=== PATIENT | male | born 1950 | race Caucasian/White ===

== ENCOUNTER 2019-08-24 12:41 | Outpatient (CLI) | payer MEDICARE, SELFPAY ==
[2019-08-24 12:59] LABS: Basophils Absolute Auto 0.06 K/mm3 (0.00-0.10); Basophils Percent Auto 0.9 % (0.0-1.0); Eosinophils Absolute Auto 0.21 K/mm3 (0.02-0.50); Hematocrit 46.6 % (37.0-46.0); Hemoglobin 16.1 g/dL (12.4-15.3); Immature Granulocyte Absolute 0.01 K/mm3 (0.00-0.00); Immature Granulocyte Percent A 0.1 % (0.0-0.0); Lymphocytes Absolute Auto 1.59 K/mm3 (1.10-4.50); Lymphocytes Percent Auto 22.8 % (18.0-42.0); Mean Corpuscular HGB Conc 34.5 g/dL (32.0-36.0); Mean Corpuscular Hemoglobin 29.4 pg (27.0-31.0); Mean Corpuscular Volume 85.2 fL (78.0-102.0); Mean Platelet Volume 8.5 fl (8.7-11.0); Monocytes Absolute Auto 0.65 K/mm3 (0.10-0.90); Monocytes Percent Auto 9.3 % (2.0-11.0); Neutrophils Absolute Auto 4.4 K/mm3 (1.7-7.2); Neutrophils Percent Auto 63.9 % (50.0-70.0); Platelet Count Result 168 K/mm3 (150-420); Red Blood Count 5.47 M/mm3 (4.70-6.10); Red Cell Distribution Width 12.6 % (11.6-14.4)
[2019-08-24 13:21] LABS: Hemoglobin A1C 6.1 % (<5.7)
[2019-08-24 14:19] LABS: Alanine Aminotransferase 41 U/L (16-63); Albumin Level 4.3 g/dL (3.4-5.0); Alkaline Phosphatase 81 U/L (46-116); Anion Gap 14.1 mmol/L (7-16); Aspartate Amino Transferase 25 U/L (15-37); Bilirubin,Total 0.4 mg/dL (0.00-1.00); Blood Urea Nitrogen 18 mg/dL (7-18); Calcium 9.4 mg/dL (8.5-10.1); Carbon Dioxide 30 mmol/L (21-32); Chloride 100 mmol/L (98-108); Cholesterol 127 mg/dL (0-200); Creatine Kinase 101 U/L (39-308); Estimated Glomerular Filt Rate 49; Glucose 103 mg/dL (70-99); HDL Direct 52 mg/dL (40-60); LDL Cholesterol Calculated 52 mg/dL (<130); Osmolality Calculated 291 mOsm/kg (285-295); Potassium 4.1 mmol/L (3.5-5.1); Prostate Specific Antigen 1.1 ng/mL (< OR = 4.0); Sodium 140 mmol/L (136-145); Total Protein 7.7 g/dL (6.4-8.2); Triglycerides 113 mg/dL (0-150)
[2019-08-24 14:33] LABS: Add Urine Microscopic? NO; Appearance Urine Clear (Clear); Bilirubin Urine Negative (Negative); Blood Urine Negative (Negative); Color Urine Straw (Yellow); Glucose Urine UA Negative (Negative); Ketones Urine Negative (Negative); Leukocyte Esterase Ur Negative LEU/UL (Negative); Nitrate Urine Negative (Negative); Protein Urine Negative (Negative); Specific Grav Ur <= 1.005 (1.010-1.020); Urobilinogen Urine 0.2 mg/dL (0.2-1.0)
== END 2019-08-24 12:42 | disposition home or self-care (01) ==
PROVIDERS: PCP Internal Medicine; Visit Provider Internal Medicine
DX: R73.01 Impaired fasting glucose (principal); E78.5 Hyperlipidemia, unspecified; I10 Essential (primary) hypertension; Z12.5 Encounter for screening for malignant neoplasm of prostate
CPT/HCPCS: 36415; 80053; 80061; 81003; 82550; 83036; 84153; 85025; G0103

== ENCOUNTER 2019-08-31 08:03 | Outpatient (RCR) | payer MEDICARE, OTHER, SELFPAY ==
--- NOTE | 2019-09-02 08:38 | PTOPEVAL ---
Thank you for referring Anatoly Wilcox to [facility]. Please review, sign, date and return this plan of care [facility]. I agree with and certify that the following plan of care is medically necessary. Referring Physician Date Admitting Provider: Attending Provider: Laura Ball MD Referring Provider: *PT Outpatient Evaluation Start: 08/31/19 08:10 Freq: Status: Active Protocol: Document 08/31/19 08:10 [facility] (Rec: 08/31/19 08:44 [facility] [id number]) Therapy Assessment Status Assessment Status Assessment Status Evaluation Evaluation Information Problem Diagnosis R shoulder pain, unsteady gait Onset 08/30/19 Additional Evaluation Detail quick dash = 54% Subjective Information patient reports he has pain in Query Text:As Reported By Patient/ the R skyler. he reports he Family is unable to sleep at night due to pain. he reports he is unable to get into a comfortable position, except in his recliner. he reports he has had pain in the R shoulder overall for about 6+ years, but worse for the past 6-7 weeks. he reports no falls . he reports he does ahve unsteady gait since his stroke back in 2013. Prior Level of Function Comments Additional Prior Level of Function prior to 6-7 weeks ago, he was Comments able to sleep at night, he was able to go without pain, and had issues about 1 time per week. he reports he has daily issues and unable to sleep all nights now. Pain Assessment Timing of Pain Assessment Timing of Pain Assessment Assessment Pain Scale Pain Scale Used Numeric (1 - 10) Self Report Pain Assessment Right Shoulder(s) Reported Pain Level 2 Pain Description Throbbing Lowest Pain Intensity 0 Greatest Pain Intensity 6 Pain Aggravating Factors Lifting,Prolonged Position, Other Pain Aggravating Factors Other Pain Aggravating Factors washing back, sleeping Pain Score Pain Score 2: Self Report Upper Extremity Range of Motion General Upper Extremity Range of Motion Gross Upper Extremity Range of Motion patient actively reaches Comments overhead with the bilateral hands/shoulders with elbow flexion and slow moveme
== END 2019-10-01 10:28 | disposition home or self-care (01) ==
LOC: CHSPT 08:03
PROVIDERS: PCP Internal Medicine; Visit Provider Internal Medicine
DX: M25.511 Pain in right shoulder (principal); R26.81 Unsteadiness on feet
CPT/HCPCS: 97014; 97110; 97112; 97161; G0283; G0297

== ENCOUNTER 2019-08-31 09:22 | Outpatient (CLI) | payer MEDICARE, OTHER, SELFPAY ==
--- NOTE | ~2019-08-31 | CT_ITS ---
EXAMINATION: CT lung screening DATE: 08/31/2019 09:57 INDICATION: Personal history of tobacco dependence, prior smoker with 100 pack year history TECHNIQUE: Computed tomography (CT) of the chest was performed without intravenous contrast. The dose -length product (DLP) was 103.67 mGy-cm. Automated exposure control and iterative reconstruction tech [employer] were employed. COMPARISON: None FINDINGS: There is mild emphysema. A 2 mm nodule is seen in the right upper lobe. The lungs are free of focal airspace opacities. There is no pleural effusion or pneumothorax. Mild atelectasis is noted in the lung bases. No pathologically enlarged thoracic lymph nodes are identified. The heart size is normal. Coronary artery atherosclerosis is noted. Subendocardial fat deposition in the left ventricle is consistent with prior myocardial infarction. There is mild thoracic spondylosis. IMPRESSION: 1. Lung-RADS category 2: Benign appearance or behavior. Continue annual screening with noncontrast lo w-dose chest CT in 12 months. Reviewed, dictated and finalized at location A. IMPRESSION: 1. Lung-RADS category 2: Benign appearance or behavior. Continue annual screeni ng with noncontrast low-dose chest CT in 12 months.
== END 2019-08-31 09:23 | disposition home or self-care (01) ==
LOC: CHSIMG 09:24
PROVIDERS: PCP Internal Medicine; Visit Provider Internal Medicine
DX: Z12.2 Encounter for screening for malignant neoplasm of respiratory organs (principal); Z87.891 Personal history of nicotine dependence
CPT/HCPCS: G0297

== ENCOUNTER 2019-09-14 07:23 | Outpatient (CLI) | payer MEDICARE, SELFPAY ==
[2019-09-14 08:52] LABS: Alanine Aminotransferase 40 U/L (16-63); Albumin Level 3.9 g/dL (3.4-5.0); Alkaline Phosphatase 76 U/L (46-116); Anion Gap 11.3 mmol/L (7-16); Aspartate Amino Transferase 25 U/L (15-37); Bilirubin,Total 0.4 mg/dL (0.00-1.00); Blood Urea Nitrogen 23 mg/dL (7-18); Calcium 8.8 mg/dL (8.5-10.1); Carbon Dioxide 31 mmol/L (21-32); Chloride 100 mmol/L (98-108); Cholesterol 119 mg/dL (0-200); Estimated Glomerular Filt Rate 53; Glucose 101 mg/dL (70-99); HDL Direct 46 mg/dL (40-60); LDL Cholesterol Calculated 54 mg/dL (<130); Osmolality Calculated 289 mOsm/kg (285-295); Potassium 4.3 mmol/L (3.5-5.1); Sodium 138 mmol/L (136-145); Total Protein 7.3 g/dL (6.4-8.2); Triglycerides 93 mg/dL (0-150)
== END 2019-09-14 07:24 | disposition home or self-care (01) ==
LOC: CHSLAB 07:25
PROVIDERS: PCP Internal Medicine; Visit Provider Internal Medicine Cardiovascular Disease
DX: E78.2 Mixed hyperlipidemia (principal); I25.10 Atherosclerotic heart disease of native coronary artery without angina pectoris; I10 Essential (primary) hypertension
CPT/HCPCS: 36415; 80053; 80061

== ENCOUNTER 2020-03-01 07:00 | Outpatient (CLI) | payer MEDICARE, SELFPAY ==
[2020-03-01 07:29] LABS: Basophils Absolute Auto 0.06 K/mm3 (0.00-0.10); Eosinophils Absolute Auto 0.54 K/mm3 (0.02-0.50); Eosinophils Percent Auto 8.9 % (1.0-6.0); Hemoglobin 15.1 g/dL (12.4-15.3); Immature Granulocyte Absolute 0.01 K/mm3 (0.00-0.00); Immature Granulocyte Percent A 0.2 % (0.0-0.0); Lymphocytes Absolute Auto 1.54 K/mm3 (1.10-4.50); Lymphocytes Percent Auto 25.5 % (18.0-42.0); Mean Corpuscular HGB Conc 33.6 g/dL (32.0-36.0); Mean Corpuscular Hemoglobin 29.3 pg (27.0-31.0); Mean Corpuscular Volume 87.4 fL (78.0-102.0); Mean Platelet Volume 8.4 fl (8.7-11.0); Monocytes Absolute Auto 0.45 K/mm3 (0.10-0.90); Monocytes Percent Auto 7.4 % (2.0-11.0); Neutrophils Absolute Auto 3.5 K/mm3 (1.7-7.2); Platelet Count Result 175 K/mm3 (150-420); Red Blood Count 5.15 M/mm3 (4.70-6.10); Red Cell Distribution Width 12.4 % (11.6-14.4); White Blood Count 6.1 K/mm3 (4.8-10.8)
[2020-03-01 07:41] LABS: Hemoglobin A1C 5.8 % (<5.7)
[2020-03-01 08:11] LABS: Alanine Aminotransferase 31 U/L (16-63); Albumin Level 4.2 g/dL (3.4-5.0); Alkaline Phosphatase 68 U/L (46-116); Anion Gap 7 mmol/L (8-16); Aspartate Amino Transferase 19 U/L (15-37); Bilirubin,Total 0.5 mg/dL (0.00-1.00); Blood Urea Nitrogen 23 mg/dL (7-18); Carbon Dioxide 29 mmol/L (21-32); Chloride 100 mmol/L (98-108); Cholesterol 132 mg/dL (0-200); Creatine Kinase 110 U/L (39-308); Estimated Glomerular Filt Rate 44; Glucose 103 mg/dL (70-99); HDL Direct 47 mg/dL (40-60); LDL Cholesterol Calculated 62 mg/dL (<130); Osmolality Calculated 285 mOsm/kg (285-295); Potassium 4.8 mmol/L (3.5-5.1); Sodium 136 mmol/L (136-145); Total Protein 7.7 g/dL (6.4-8.2); Triglycerides 115 mg/dL (0-150)
[2020-03-01 08:26] LABS: Add Urine Microscopic? NO; Appearance Urine Clear (Clear); Bilirubin Urine Negative (Negative); Blood Urine Negative (Negative); Color Urine Yellow (Yellow); Glucose Urine UA Negative (Negative); Ketones Urine Negative (Negative); Leukocyte Esterase Ur Negative (Negative); Nitrate Urine Negative (Negative); Protein Urine Negative (Negative); Specific Grav Ur 1.015 (1.010-1.020); Urobilinogen Urine 0.2 mg/dL (0.2-1.0); pH Urine 6.5 (5.0-8.0)
[2020-03-01 08:33] LABS: Creatinine Urine 48.86 mg/dL (40-278); MALB Creatinine Ratio 26.6 mg/g (0-30); Microalbumin Urine Random < 13.0 mg/L
== END 2020-03-01 07:01 | disposition home or self-care (01) ==
LOC: CHSLAB 07:01
PROVIDERS: PCP Internal Medicine; Visit Provider Internal Medicine
DX: E78.2 Mixed hyperlipidemia (principal); E11.9 Type 2 diabetes mellitus without complications; I12.9 Hypertensive chronic kidney disease with stage 1 through stage 4 chronic kidney disease, or unspecified chronic kidney disease; N18.30 Chronic kidney disease, stage 3 unspecified
CPT/HCPCS: 36415; 80053; 80061; 81003; 82043; 82550; 83036; 85025

== ENCOUNTER 2020-04-12 07:19 | Outpatient (CLI) | payer MEDICARE, SELFPAY ==
[2020-04-12 08:25] LABS: Anion Gap 6 mmol/L (8-16); Blood Urea Nitrogen 26 mg/dL (7-18); Calcium 9.4 mg/dL (8.5-10.1); Carbon Dioxide 31 mmol/L (21-32); Chloride 98 mmol/L (98-108); Estimated Glomerular Filt Rate 41; Glucose 125 mg/dL (70-99); Osmolality Calculated 285 mOsm/kg (285-295); Potassium 4.6 mmol/L (3.5-5.1); Sodium 135 mmol/L (136-145)
== END 2020-04-12 07:20 | disposition home or self-care (01) ==
LOC: CHSLAB 07:20
PROVIDERS: PCP Internal Medicine; Visit Provider Internal Medicine
DX: N18.30 Chronic kidney disease, stage 3 unspecified (principal)
CPT/HCPCS: 36415; 80048

== ENCOUNTER 2020-05-01 09:12 | Outpatient (CLI) | payer MEDICARE, OTHER, SELFPAY ==
--- NOTE | ~2020-05-01 | US_ITS ---
EXAMINATION: US renal BI, US retroperitoneal limited EXAM DATE: 05/01/2020 11:11 INDICATION: Chronic kidney disease stage III. TECHNIQUE: Multiple grayscale and Doppler images of the kidneys were obtained (by a technologist who performed the scan) and subsequently reviewed. Multiple grayscale and Doppler images of the kidneys and renal arteries were obtained. Comparison is made to prior examination from 12/27/2014. FINDINGS: There is moderate bilateral renal cortical thinning. Right kidney: There is normal contour and echogenicity. It measures 10.7 x 4.3 x 5.1 centimeters. T here are no focal renal lesions identified. There is no hydronephrosis. Left kidney: There is normal contour and echogenicity. It measures 10.0 x 5.3 x 6.3 centimeters. Th ere are no focal renal lesions identified. There is no hydronephrosis. Bladder unremarkable. Prevoid bladder volume determined to be 267 mL, postvoid volume 26 mL. The aorta peak systolic velocity is 34 cm/s. The right renal artery peak systolic velocity is 98 cm/s in the proximal segment, 117 cm/s in the mid segment, and 97 cm/s in the distal segment. The left re nal artery peak systolic velocity is 36 cm/s in the proximal segment, 86 cm/s in the mid segment, and 99 cm/s in the distal segment. Compared to 2014, mild progression in the renal cortical thinning. IMPRESSION: 1. Renal artery Doppler velocities within normal limits. 2. Moderate bilateral renal cortical thinning. 3. Small postvoid residual of 26 mL. Reviewed, dictated and finalized at location A. WORKER IMPRESSION: 1. Renal artery Doppler velocities within normal limits. 2. Moderate bilateral renal cortical thinning. 3. Small postvoid residual of 26 mL.
== END 2020-05-01 09:13 | disposition home or self-care (01) ==
LOC: CHSIMG 09:14
PROVIDERS: PCP Internal Medicine; Visit Provider Internal Medicine
DX: N18.30 Chronic kidney disease, stage 3 unspecified (principal)
CPT/HCPCS: 76775

== ENCOUNTER 2020-05-27 07:35 | Outpatient (CLI) | payer MEDICARE, SELFPAY ==
[2020-05-27 09:12] LABS: Anion Gap 8 mmol/L (8-16); Blood Urea Nitrogen 27 mg/dL (7-18); Calcium 9.2 mg/dL (8.5-10.1); Carbon Dioxide 31 mmol/L (21-32); Chloride 98 mmol/L (98-108); Estimated Glomerular Filt Rate 43; Glucose 116 mg/dL (70-99); Osmolality Calculated 290 mOsm/kg (285-295); Potassium 4.3 mmol/L (3.5-5.1); Sodium 137 mmol/L (136-145)
== END 2020-05-27 07:36 | disposition home or self-care (01) ==
LOC: CHSLAB 07:37
PROVIDERS: PCP Internal Medicine; Visit Provider Internal Medicine
DX: N18.30 Chronic kidney disease, stage 3 unspecified (principal)
CPT/HCPCS: 36415; 80048

== ENCOUNTER 2020-06-24 07:50 | Outpatient (CLI) | payer MEDICARE, SELFPAY ==
[2020-06-24 08:47] LABS: Anion Gap 5 mmol/L (8-16); Blood Urea Nitrogen 24 mg/dL (7-18); Calcium 9.2 mg/dL (8.5-10.1); Carbon Dioxide 31 mmol/L (21-32); Chloride 101 mmol/L (98-108); Estimated Glomerular Filt Rate 42; Glucose 109 mg/dL (70-99); Osmolality Calculated 289 mOsm/kg (285-295); Potassium 4.7 mmol/L (3.5-5.1); Sodium 137 mmol/L (136-145)
[2020-06-29 08:59] LABS: Carbamazepine Tegretol 3.8 mcg/mL (4.0-12.0)
== END 2020-06-24 07:51 | disposition home or self-care (01) ==
LOC: CHSLAB 07:54
PROVIDERS: PCP Internal Medicine
DX: G40.209 Localization-related (focal) (partial) symptomatic epilepsy and epileptic syndromes with complex partial seizures, not intractable, without status epilepticus (principal)
CPT/HCPCS: 36415; 80048; 80156

== ENCOUNTER 2020-07-14 07:18 | Emergency (ER) | payer MEDICARE, OTHER, SELFPAY ==
[2020-07-14 07:33] VITALS: BP 179/81; PULSE 67; RESP 16; TEMP 36.8; O2SAT 99
--- NOTE | 2020-07-14 07:37 | ECG_ITS ---
Measurements Intervals [place] Rate: 65 P: 58 [place]: 164 QRS: 73 QRSD: 100 T: 0 QT: 372 QTc: 387 Interpretive Statements SINUS RHYTHM INCOMPLETE RIGHT BUNDLE BRANCH BLOCK MINIMAL Q WAVES- INFERIOR LEADS BORDERLINE ST-T WAVE ABNORMALITY- INFERIOR LEADS BORDERLINE ECG Electronically Signed On 07-14-2020 8:14:48 CDT by Russell Shipman D.O.
--- NOTE | 2020-07-14 07:51 | ED.DIZZY ---
HPI - Dizziness General Chief Complaint: Dizziness Stated Complaint: ambulance Time Seen by Provider: 07/14/20 07:45 Source: patient Mode of arrival: ambulatory Limitations: no limitations History of Present Illness HPI Narrative: Patient comes in with complaints of vertigo this am. He took a meclizine at home prior to coming in, which was about a year old, which he had gotten from Dr. Ball. He had an episode of vertigo last pm and took meclizine for it as well. He said he was disturbed when he had the vertigo this am. This was associated with him turning his head to the right. He got pretty anxious with this he says. Nothing seemed to help this at home. Nothing seemed to make the vertigo decrease except time. MD elicited complaint: dizziness Pertinent past history: BPPV Onset (ago): minute(s) Timing: sudden onset Severity: moderate Description: sense of movement and room spinning Context: change in body position History of similar symptoms: Yes Exacerbating factors: movement/ambulation and change in body position Relieving factors: other (spontaneously stopped after a few seconds) Related Data Home Medications Medication Instructions Recorded Confirmed amlodipine 10 mg PO DAILY 07/14/20 07/14/20 atorvastatin 80 mg PO DAILY 07/14/20 07/14/20 carbamazepine [Tegretol XR] 100 mg PO BID 07/14/20 07/14/20 cilostazol 100 mg PO BID 07/14/20 07/14/20 lisinopril 5 mg PO DAILY 07/14/20 07/14/20 meclizine 25 - 50 mg PO Q4-6H PRN 07/14/20 07/14/20 metoprolol tartrate 25 mg PO BID 07/14/20 07/14/20 pantoprazole 40 mg PO DAILY 07/14/20 07/14/20 tamsulosin 0.4 mg PO DAILY 07/14/20 07/14/20 Allergies Allergy/AdvReac Type Severity Reaction Status Date / Time influenza virus vaccine, Allergy Unknown Unknown Verified 07/14/20 07:45 specific Review of Systems Constitutional: Constitutional: Reports no additional constitutional complaints Eyes: Eyes: Reports no additional eye complaints ENT: Reports system reviewed and no additional complaints, except as documented Cardiovascular: Cardiovascular: Reports no additional cardiovascular complaints Respiratory: Respiratory: Reports no additional respiratory complaints Gastrointestinal: Gastrointestinal: Reports no additional gastrointestinal complaints Genitourinary: Genitourinary: Reports no additional male genitourinary complaints Musculoskeletal: Musculoskeletal: Reports no additional musculoskeletal complaints Integumentary/Breasts: Skin/Breast: Reports system reviewed and no additional complaints, except as docu Neurologic: Reports system reviewed and no additional complaints, except as documented Psychiatric: Psychiatric: Reports no additional psychiatric complaints Endocrine: Endocrine: Reports no additional endocrine complaints Hematologic/Lymphatic: Hematologic/Lymphatic: Reports no additional hematologic/lymphatic complaints Allergic/Immunologic: Allergic/Immunologic: Reports no additional allergic/immunologic complaints Exam Const: General: no acute distress Orientation/consciousness: patient oriented x3 HENMT: Head: normal to inspection Ears: TM's normal bilaterally and external ear abnormal General nose exam: Normal external nose present Face and sinus: normal facial exam Mouth: Yes Normal oral and palatal mucosa present Throat: posterior oropharynx normal Eyes: Conjunctivae: conjunctivae normal Neck: Neck: normal visual inspection Chest: Chest palpation & inspection: normal inspection of the chest Resp: Effort & Inspection: normal respiratory effort Auscultation: clear to auscultation bilaterally Cardio: Rate: regular rate Rhythm: regular rhythm GI: GI Palp: Yes Soft to palpation (nontender) Skin: General skin exam: normal color Neuro: General: patient oriented x3 and moves all extremities Other: Nystagmus with fast component to the right. No focal deficit. Extrem: General: normal to inspection Psych: Appearance: grossl
[2020-07-14 08:07] LABS: Basophils Absolute Auto 0.04 K/mm3 (0.00-0.10); Basophils Percent Auto 0.6 % (0.0-1.0); Eosinophils Absolute Auto 0.12 K/mm3 (0.02-0.50); Eosinophils Percent Auto 1.8 % (1.0-6.0); Hematocrit 42.6 % (37.0-46.0); Hemoglobin 14.8 g/dL (12.4-15.3); Immature Granulocyte Absolute 0.02 K/mm3 (0.00-0.00); Immature Granulocyte Percent A 0.3 % (0.0-0.0); Immature Platelet Fraction Pct 1.2 % (1.0-7.0); Lymphocytes Absolute Auto 0.82 K/mm3 (1.10-4.50); Lymphocytes Percent Auto 12.5 % (18.0-42.0); Mean Corpuscular HGB Conc 34.7 g/dL (32.0-36.0); Mean Corpuscular Hemoglobin 29.6 pg (27.0-31.0); Mean Corpuscular Volume 85.2 fL (78.0-102.0); Mean Platelet Volume 8.7 fl (8.7-11.0); Monocytes Absolute Auto 0.37 K/mm3 (0.10-0.90); Monocytes Percent Auto 5.6 % (2.0-11.0); Neutrophils Absolute Auto 5.2 K/mm3 (1.7-7.2); Neutrophils Percent Auto 79.2 % (50.0-70.0); Platelet Count Result 154 K/mm3 (150-420); Red Cell Distribution Width 12.5 % (11.6-14.4); White Blood Count 6.6 K/mm3 (4.8-10.8)
[2020-07-14 08:20] LABS: Alanine Aminotransferase 34 U/L (16-63); Albumin Level 3.7 g/dL (3.4-5.0); Alkaline Phosphatase 62 U/L (46-116); Anion Gap 5 mmol/L (8-16); Aspartate Amino Transferase 17 U/L (15-37); Bilirubin,Total 0.5 mg/dL (0.00-1.00); Blood Urea Nitrogen 22 mg/dL (7-18); Carbon Dioxide 29 mmol/L (21-32); Chloride 99 mmol/L (98-108); Estimated CRCL calculation 35 ml/min; Estimated Glomerular Filt Rate 40; Glucose 118 mg/dL (70-99); Osmolality Calculated 280 mOsm/kg (285-295); Potassium 4.8 mmol/L (3.5-5.1); Sodium 133 mmol/L (136-145); Total Protein 7.3 g/dL (6.4-8.2); Troponin I 7.2 ng/L (0.00-60.4)
[2020-07-14 09:50] VITALS: BP 128/65; PULSE 56; RESP 16; O2SAT 94
== END 2020-07-14 09:50 | disposition home or self-care (01) ==
PROVIDERS: Emergency Provider Emergency Medicine; PCP Internal Medicine
DX: H81.11 Benign paroxysmal vertigo, right ear (principal)
CPT/HCPCS: 36415; 80053; 84484; 85025; 85055; 93005; 99283; 99284

== ENCOUNTER 2020-08-30 07:04 | Outpatient (CLI) | payer MEDICARE, SELFPAY ==
[2020-08-30 07:19] LABS: Add Urine Microscopic? NO; Appearance Urine Clear (Clear); Bilirubin Urine Negative (Negative); Blood Urine Negative (Negative); Color Urine Yellow (Yellow); Glucose Urine UA Negative (Negative); Ketones Urine Negative (Negative); Leukocyte Esterase Ur Negative LEU/UL (Negative); Nitrate Urine Negative (Negative); Protein Urine Negative (Negative); Specific Grav Ur <= 1.005 (1.010-1.020); Urobilinogen Urine 0.2 mg/dL (0.2-1.0)
[2020-08-30 07:21] LABS: Basophils Absolute Auto 0.07 K/mm3 (0.00-0.10); Basophils Percent Auto 1.4 % (0.0-1.0); Eosinophils Absolute Auto 0.24 K/mm3 (0.02-0.50); Eosinophils Percent Auto 4.8 % (1.0-6.0); Hematocrit 44.8 % (37.0-46.0); Hemoglobin 15.4 g/dL (12.4-15.3); Immature Granulocyte Absolute 0.02 K/mm3 (0.00-0.00); Immature Granulocyte Percent A 0.4 % (0.0-0.0); Immature Platelet Fraction Pct 0.8 % (1.0-7.0); Lymphocytes Absolute Auto 1.39 K/mm3 (1.10-4.50); Lymphocytes Percent Auto 27.7 % (18.0-42.0); Mean Corpuscular HGB Conc 34.4 g/dL (32.0-36.0); Mean Corpuscular Hemoglobin 29.6 pg (27.0-31.0); Mean Platelet Volume 8.5 fl (8.7-11.0); Monocytes Absolute Auto 0.45 K/mm3 (0.10-0.90); Neutrophils Absolute Auto 2.8 K/mm3 (1.7-7.2); Neutrophils Percent Auto 56.7 % (50.0-70.0); Platelet Count Result 171 K/mm3 (150-420); Red Blood Count 5.21 M/mm3 (4.70-6.10); Red Cell Distribution Width 12.5 % (11.6-14.4)
[2020-08-30 07:28] LABS: Hemoglobin A1C 5.8 % (<5.7)
[2020-08-30 07:51] LABS: Creatinine Urine 35.76 mg/dL (40-278)
[2020-08-30 08:16] LABS: MALB Creatinine Ratio 3.6 mg/g (0-30); Microalbumin Urine Random < 1.3 mg/L
[2020-08-30 09:37] LABS: Alanine Aminotransferase 33 U/L (16-63); Albumin Level 3.9 g/dL (3.4-5.0); Alkaline Phosphatase 68 U/L (46-116); Anion Gap 7 mmol/L (8-16); Aspartate Amino Transferase 16 U/L (15-37); Bilirubin,Total 0.4 mg/dL (0.00-1.00); Blood Urea Nitrogen 21 mg/dL (7-18); Carbon Dioxide 31 mmol/L (21-32); Chloride 101 mmol/L (98-108); Cholesterol 121 mg/dL (0-200); Creatine Kinase 70 U/L (39-308); Estimated Glomerular Filt Rate 44; Glucose 101 mg/dL (70-99); HDL Direct 45 mg/dL (40-60); LDL Cholesterol Calculated 57 mg/dL (<130); Osmolality Calculated 291 mOsm/kg (285-295); Potassium 4.6 mmol/L (3.5-5.1); Sodium 139 mmol/L (136-145); Total Protein 7.1 g/dL (6.4-8.2); Triglycerides 97 mg/dL (0-150)
== END 2020-08-30 07:05 | disposition home or self-care (01) ==
LOC: CHSLAB 07:07
PROVIDERS: PCP Internal Medicine; Visit Provider Internal Medicine
DX: R73.01 Impaired fasting glucose (principal); I10 Essential (primary) hypertension; E78.5 Hyperlipidemia, unspecified; N40.1 Benign prostatic hyperplasia with lower urinary tract symptoms
CPT/HCPCS: 36415; 80053; 80061; 81003; 82043; 82550; 83036; 85025; 85055

== ENCOUNTER 2021-02-26 07:04 | Outpatient (CLI) | payer MEDICARE, SELFPAY ==
[2021-02-26 07:17] LABS: Basophils Absolute Auto 0.06 K/mm3 (0.00-0.10); Eosinophils Absolute Auto 0.22 K/mm3 (0.02-0.50); Eosinophils Percent Auto 3.8 % (1.0-6.0); Hematocrit 44.8 % (37.0-46.0); Hemoglobin 15.3 g/dL (12.4-15.3); Immature Granulocyte Absolute 0.01 K/mm3 (0.00-0.00); Immature Granulocyte Percent A 0.2 % (0.0-0.0); Lymphocytes Absolute Auto 1.65 K/mm3 (1.10-4.50); Lymphocytes Percent Auto 28.5 % (18.0-42.0); Mean Corpuscular HGB Conc 34.2 g/dL (32.0-36.0); Mean Corpuscular Hemoglobin 29.7 pg (27.0-31.0); Mean Platelet Volume 8.2 fl (8.7-11.0); Monocytes Absolute Auto 0.49 K/mm3 (0.10-0.90); Monocytes Percent Auto 8.5 % (2.0-11.0); Neutrophils Absolute Auto 3.4 K/mm3 (1.7-7.2); Platelet Count Result 141 K/mm3 (150-420); Red Blood Count 5.15 M/mm3 (4.70-6.10); Red Cell Distribution Width 12.7 % (11.6-14.4); White Blood Count 5.8 K/mm3 (4.8-10.8)
[2021-02-26 07:32] LABS: Hemoglobin A1C 5.9 % (<5.7)
[2021-02-26 07:41] LABS: Add Urine Microscopic? NO; Appearance Urine Clear (Clear); Bilirubin Urine Negative (Negative); Blood Urine Negative (Negative); Color Urine Light Yellow (Yellow); Glucose Urine UA Negative (Negative); Ketones Urine Negative (Negative); Leukocyte Esterase Ur Negative (Negative); Nitrate Urine Negative (Negative); Protein Urine Negative (Negative); Specific Grav Ur 1.025 (1.010-1.020); Urobilinogen Urine 0.2 mg/dL (0.2-1.0)
[2021-02-26 08:05] LABS: Alanine Aminotransferase 27 U/L (16-63); Albumin Level 3.9 g/dL (3.4-5.0); Alkaline Phosphatase 74 U/L (46-116); Anion Gap 6 mmol/L (8-16); Aspartate Amino Transferase 16 U/L (15-37); Bilirubin,Total 0.5 mg/dL (0.00-1.00); Blood Urea Nitrogen 23 mg/dL (7-18); Calcium 9.3 mg/dL (8.5-10.1); Carbon Dioxide 30 mmol/L (21-32); Chloride 101 mmol/L (98-108); Cholesterol 120 mg/dL (0-200); Creatine Kinase 66 U/L (39-308); Estimated Glomerular Filt Rate 43; Glucose 110 mg/dL (70-99); HDL Direct 48 mg/dL (40-60); LDL Cholesterol Calculated 57 mg/dL (<130); Osmolality Calculated 288 mOsm/kg (285-295); Potassium 4.3 mmol/L (3.5-5.1); Sodium 137 mmol/L (136-145); Total Protein 7.6 g/dL (6.4-8.2); Triglycerides 73 mg/dL (0-150)
== END 2021-02-26 07:05 | disposition home or self-care (01) ==
LOC: CHSLAB 07:06
PROVIDERS: PCP Internal Medicine; Visit Provider Internal Medicine
DX: E78.2 Mixed hyperlipidemia (principal); I12.9 Hypertensive chronic kidney disease with stage 1 through stage 4 chronic kidney disease, or unspecified chronic kidney disease; N18.30 Chronic kidney disease, stage 3 unspecified; R73.01 Impaired fasting glucose
CPT/HCPCS: 36415; 80053; 80061; 81003; 82550; 83036; 85025

== ENCOUNTER 2021-03-23 09:29 | Outpatient (CLI) | payer MEDICARE, OTHER, SELFPAY ==
--- NOTE | ~2021-03-23 | CT_ITS ---
EXAMINATION: CT lung screening EXAM DATE: 03/23/2021 09:46 INDICATION: Lung Cancer Screening . TECHNIQUE: Spiral low dose CT of the chest without contrast. Axial, coronal and sagittal images were reviewed. The dose-length product (DLP) for this examination was 106.20 mGy-cm. The exposure was t ailored according to patient size (auto mA exposure control), and iterative reconstruction (ASIR) was used as additional dose reduction technique. Comparison is made to prior examination from 08/31/2019. FINDINGS: There is mild emphysema. No suspicious pulmonary nodules. Tracheobronchial tree is patent . There is no mediastinal, hilar or axillary lymphadenopathy. There are no pleural or pericardial effusions. There is no pneumothorax. Heart normal in size. There is moderate to severe coronar y arterial calcification, arterial sclerosis. Upper abdomen is unremarkable. There is thoracic spon dylosis without osteoblastic or osteolytic lesions identified. IMPRESSION: 1. Lung-RADS category 1S, negative (<1%chance of malignancy); recommend continued LDCT screening in 1 year. 2. Moderate to severe coronary artery calcification; consider cardiology consult if not recently marina luated. Reviewed, dictated and finalized at location A. FOOD RECEIVING CLERK IMPRESSION: 1. Lung-RADS category 1S, negative (<1%chance of malignancy); recommend contin ued LDCT screening in 1 year. 2. Moderate to severe coronary artery calcification; consider cardiology consu lt if not recently evaluated.
== END 2021-03-23 09:30 | disposition home or self-care (01) ==
LOC: CHSIMG 09:30
PROVIDERS: PCP Internal Medicine; Visit Provider Internal Medicine
DX: Z87.891 Personal history of nicotine dependence (principal)
CPT/HCPCS: 71271

== ENCOUNTER 2021-09-21 07:03 | Outpatient (CLI) | payer MEDICARE, SELFPAY ==
[2021-09-21 08:01] LABS: Basophils Absolute Auto 0.07 K/mm3 (0.00-0.10); Basophils Percent Auto 1.3 % (0.0-1.0); Eosinophils Absolute Auto 0.14 K/mm3 (0.02-0.50); Eosinophils Percent Auto 2.6 % (1.0-6.0); Hematocrit 44.1 % (37.0-46.0); Hemoglobin 14.8 g/dL (12.4-15.3); Immature Granulocyte Absolute 0.02 K/mm3 (0.00-0.00); Immature Granulocyte Percent A 0.4 % (0.0-0.0); Lymphocytes Absolute Auto 1.46 K/mm3 (1.10-4.50); Lymphocytes Percent Auto 27.4 % (18.0-42.0); Mean Corpuscular HGB Conc 33.6 g/dL (32.0-36.0); Mean Corpuscular Hemoglobin 29.2 pg (27.0-31.0); Monocytes Absolute Auto 0.42 K/mm3 (0.10-0.90); Monocytes Percent Auto 7.9 % (2.0-11.0); Neutrophils Absolute Auto 3.2 K/mm3 (1.7-7.2); Neutrophils Percent Auto 60.4 % (50.0-70.0); Platelet Count Result 151 K/mm3 (150-420); Red Blood Count 5.07 M/mm3 (4.70-6.10); Red Cell Distribution Width 12.9 % (11.6-14.4); White Blood Count 5.3 K/mm3 (4.8-10.8)
[2021-09-21 08:08] LABS: Creatinine Urine 105.31 mg/dL (40-278); MALB Creatinine Ratio 12.3 mg/g (0-30); Microalbumin Urine Random < 13.0 mg/L
[2021-09-21 08:17] LABS: Alanine Aminotransferase 24 U/L (16-63); Albumin Level 3.8 g/dL (3.4-5.0); Alkaline Phosphatase 66 U/L (46-116); Anion Gap 4 mmol/L (8-16); Aspartate Amino Transferase 16 U/L (15-37); Bilirubin,Total 0.4 mg/dL (0.00-1.00); Blood Urea Nitrogen 21 mg/dL (7-18); Calcium 8.9 mg/dL (8.5-10.1); Carbon Dioxide 31 mmol/L (21-32); Chloride 102 mmol/L (98-108); Cholesterol 109 mg/dL (0-200); Creatine Kinase 73 U/L (39-308); Estimated Glomerular Filt Rate 46; Glucose 102 mg/dL (70-99); HDL Direct 48 mg/dL (40-60); LDL Cholesterol Calculated 44 mg/dL (<130); Osmolality Calculated 287 mOsm/kg (285-295); Potassium 4.3 mmol/L (3.5-5.1); Prostate Specific Antigen 1.6 ng/mL (< OR = 4.0); Sodium 137 mmol/L (136-145); Total Protein 7.4 g/dL (6.4-8.2); Triglycerides 85 mg/dL (0-150)
[2021-09-21 08:21] LABS: Hemoglobin A1C 5.4 % (<5.7)
[2021-09-21 08:38] LABS: Add Urine Microscopic? NO; Appearance Urine Clear (Clear); Bilirubin Urine Negative (Negative); Blood Urine Negative (Negative); Color Urine Light Yellow (Yellow); Glucose Urine UA Negative (Negative); Ketones Urine Negative (Negative); Leukocyte Esterase Ur Negative LEU/UL (Negative); Nitrate Urine Negative (Negative); Protein Urine Negative (Negative); Specific Grav Ur 1.015 (1.010-1.020); Urobilinogen Urine 0.2 mg/dL (0.2-1.0); pH Urine 5.5 (5.0-8.0)
== END 2021-09-21 07:04 | disposition home or self-care (01) ==
LOC: CHSLAB 07:06
PROVIDERS: PCP Internal Medicine; Visit Provider Internal Medicine
DX: E78.5 Hyperlipidemia, unspecified (principal); I10 Essential (primary) hypertension; N39.0 Urinary tract infection, site not specified; R73.01 Impaired fasting glucose; Z12.5 Encounter for screening for malignant neoplasm of prostate
CPT/HCPCS: 36415; 80053; 80061; 81003; 82043; 82550; 83036; 84153; 85025; G0103

== ENCOUNTER 2022-04-12 07:13 | Outpatient (CLI) | payer MEDICARE, SELFPAY ==
[2022-04-12 07:36] LABS: Basophils Absolute Auto 0.05 K/mm3 (0.00-0.10); Eosinophils Absolute Auto 0.21 K/mm3 (0.02-0.50); Hematocrit 43.9 % (37.0-46.0); Hemoglobin 14.8 g/dL (12.4-15.3); Immature Granulocyte Absolute 0.01 K/mm3 (0.00-0.00); Immature Granulocyte Percent A 0.2 % (0.0-0.0); Lymphocytes Absolute Auto 1.41 K/mm3 (1.10-4.50); Lymphocytes Percent Auto 26.8 % (18.0-42.0); Mean Corpuscular HGB Conc 33.7 g/dL (32.0-36.0); Mean Corpuscular Hemoglobin 29.4 pg (27.0-31.0); Mean Corpuscular Volume 87.1 fL (78.0-102.0); Mean Platelet Volume 8.4 fl (8.7-11.0); Monocytes Absolute Auto 0.37 K/mm3 (0.10-0.90); Neutrophils Absolute Auto 3.2 K/mm3 (1.7-7.2); Platelet Count Result 144 K/mm3 (150-420); Red Blood Count 5.04 M/mm3 (4.70-6.10); Red Cell Distribution Width 12.9 % (11.6-14.4); White Blood Count 5.3 K/mm3 (4.8-10.8)
[2022-04-12 07:37] LABS: Add Urine Microscopic? NO; Appearance Urine Clear (Clear); Bilirubin Urine Negative (Negative); Blood Urine Negative (Negative); Color Urine Light Yellow (Yellow); Glucose Urine UA Negative (Negative); Ketones Urine Negative (Negative); Leukocyte Esterase Ur Negative (Negative); Nitrate Urine Negative (Negative); Protein Urine Negative (Negative); Urobilinogen Urine 0.2 mg/dL (0.2-1.0)
[2022-04-12 07:46] LABS: Creatinine Urine 87.65 mg/dL (40-278); MALB Creatinine Ratio 14.8 mg/g (0-30); Microalbumin Urine Random < 13.0 mg/L
[2022-04-12 07:48] LABS: Hemoglobin A1C 5.9 % (<5.7)
[2022-04-12 08:41] LABS: Alanine Aminotransferase 29 U/L (16-63); Albumin Level 4.1 g/dL (3.4-5.0); Alkaline Phosphatase 65 U/L (46-116); Anion Gap 5 mmol/L (8-16); Aspartate Amino Transferase 19 U/L (15-37); Bilirubin,Total 0.4 mg/dL (0.00-1.00); Blood Urea Nitrogen 24 mg/dL (7-18); Calcium 8.9 mg/dL (8.5-10.1); Carbon Dioxide 31 mmol/L (21-32); Chloride 100 mmol/L (98-108); Cholesterol 123 mg/dL (0-200); Creatine Kinase 69 U/L (39-308); Estimated Glomerular Filt Rate 49; Glucose 109 mg/dL (70-99); HDL Direct 56 mg/dL (40-60); LDL Cholesterol Calculated 54 mg/dL (<130); Osmolality Calculated 287 mOsm/kg (285-295); Potassium 4.8 mmol/L (3.5-5.1); Sodium 136 mmol/L (136-145); Total Protein 7.5 g/dL (6.4-8.2); Triglycerides 67 mg/dL (0-150)
[2022-04-15 20:21] LABS: Parathyroid Intact 35 pg/mL (14-64)
== END 2022-04-12 07:14 | disposition home or self-care (01) ==
LOC: CHSLAB 07:15
PROVIDERS: PCP Internal Medicine; Visit Provider Internal Medicine
DX: R73.01 Impaired fasting glucose (principal); I10 Essential (primary) hypertension; N18.31 Chronic kidney disease, stage 3a; E78.2 Mixed hyperlipidemia
CPT/HCPCS: 36415; 80053; 80061; 81003; 82043; 82550; 83036; 83970; 85025

== ENCOUNTER 2022-09-24 15:53 | Outpatient (CLI) | payer MEDICARE, SELFPAY ==
[2022-09-24 16:11] LABS: Basophils Absolute Auto 0.07 K/mm3 (0.00-0.10); Basophils Percent Auto 1.3 % (0.0-1.0); Eosinophils Absolute Auto 0.19 K/mm3 (0.02-0.50); Eosinophils Percent Auto 3.6 % (1.0-6.0); Hematocrit 43.6 % (37.0-46.0); Hemoglobin 14.8 g/dL (12.4-15.3); Immature Granulocyte Absolute 0.01 K/mm3 (0.00-0.00); Immature Granulocyte Percent A 0.2 % (0.0-0.0); Lymphocytes Absolute Auto 1.35 K/mm3 (1.10-4.50); Lymphocytes Percent Auto 25.8 % (18.0-42.0); Mean Corpuscular HGB Conc 33.9 g/dL (32.0-36.0); Mean Corpuscular Hemoglobin 29.7 pg (27.0-31.0); Mean Corpuscular Volume 87.6 fL (78.0-102.0); Mean Platelet Volume 8.4 fl (8.7-11.0); Monocytes Absolute Auto 0.48 K/mm3 (0.10-0.90); Monocytes Percent Auto 9.2 % (2.0-11.0); Neutrophils Absolute Auto 3.1 K/mm3 (1.7-7.2); Neutrophils Percent Auto 59.9 % (50.0-70.0); Platelet Count Result 134 K/mm3 (150-420); Red Blood Count 4.98 M/mm3 (4.70-6.10); Red Cell Distribution Width 12.7 % (11.6-14.4); White Blood Count 5.2 K/mm3 (4.8-10.8)
[2022-09-24 16:40] LABS: Alanine Aminotransferase 35 U/L (16-63); Albumin Level 3.9 g/dL (3.4-5.0); Alkaline Phosphatase 66 U/L (46-116); Anion Gap 7 mmol/L (8-16); Aspartate Amino Transferase 18 U/L (15-37); Bilirubin,Total 0.3 mg/dL (0.00-1.00); Blood Urea Nitrogen 29 mg/dL (7-18); Calcium 8.8 mg/dL (8.5-10.1); Carbon Dioxide 29 mmol/L (21-32); Chloride 105 mmol/L (98-108); Estimated Glomerular Filt Rate 51; Glucose 113 mg/dL (70-99); Osmolality Calculated 298 mOsm/kg (285-295); Potassium 4.2 mmol/L (3.5-5.1); Sodium 141 mmol/L (136-145); Total Protein 7.1 g/dL (6.4-8.2)
[2022-09-28 14:14] LABS: Lyme Disease Ab (IgM), Blot Negative (Negative); Lyme Disease Ab(IgG), Blot Negative (Negative)
[2022-09-29 16:35] LABS: Rickettsia rickettsii DNA, PCR NOT DETECTED
== END 2022-09-24 15:54 | disposition home or self-care (01) ==
LOC: CHSLAB 15:55
PROVIDERS: PCP Internal Medicine; Visit Provider Nurse Practitioner Family
DX: R21 Rash and other nonspecific skin eruption (principal)
CPT/HCPCS: 36415; 80053; 85025; 86617; 86638; 86666; 87798

== ENCOUNTER 2022-10-05 07:24 | Outpatient (CLI) | payer MEDICARE, SELFPAY ==
[2022-10-05 07:53] LABS: Basophils Absolute Auto 0.06 K/mm3 (0.00-0.10); Basophils Percent Auto 1.1 % (0.0-1.0); Eosinophils Absolute Auto 0.16 K/mm3 (0.02-0.50); Eosinophils Percent Auto 2.9 % (1.0-6.0); Hemoglobin 16.4 g/dL (12.4-15.3); Immature Granulocyte Absolute 0.01 K/mm3 (0.00-0.00); Immature Granulocyte Percent A 0.2 % (0.0-0.0); Lymphocytes Absolute Auto 1.65 K/mm3 (1.10-4.50); Lymphocytes Percent Auto 29.7 % (18.0-42.0); Mean Corpuscular HGB Conc 33.5 g/dL (32.0-36.0); Mean Corpuscular Hemoglobin 29.3 pg (27.0-31.0); Mean Corpuscular Volume 87.5 fL (78.0-102.0); Mean Platelet Volume 8.5 fl (8.7-11.0); Monocytes Absolute Auto 0.52 K/mm3 (0.10-0.90); Monocytes Percent Auto 9.4 % (2.0-11.0); Neutrophils Absolute Auto 3.2 K/mm3 (1.7-7.2); Neutrophils Percent Auto 56.7 % (50.0-70.0); Platelet Count Result 154 K/mm3 (150-420); Red Cell Distribution Width 12.7 % (11.6-14.4); White Blood Count 5.6 K/mm3 (4.8-10.8)
[2022-10-05 07:54] LABS: Appearance Urine Clear (Clear); Bilirubin Urine Negative (Negative); Blood Urine Negative (Negative); Color Urine Light Yellow (Yellow); Glucose Urine UA Negative (Negative); Ketones Urine Negative (Negative); Leukocyte Esterase Ur Negative (Negative); Nitrate Urine Negative (Negative); Protein Urine Negative (Negative); Specific Grav Ur <= 1.005 (1.010-1.020); Urobilinogen Urine 0.2 mg/dL (0.2-1.0)
[2022-10-05 08:02] LABS: Add Urine Microscopic? NO
[2022-10-05 08:09] LABS: Hemoglobin A1C 5.7 % (<5.7)
[2022-10-05 08:32] LABS: Alanine Aminotransferase 35 U/L (16-63); Albumin Level 4.3 g/dL (3.4-5.0); Alkaline Phosphatase 72 U/L (46-116); Anion Gap 5 mmol/L (8-16); Aspartate Amino Transferase 23 U/L (15-37); Bilirubin,Total 0.8 mg/dL (0.00-1.00); Blood Urea Nitrogen 20 mg/dL (7-18); Calcium 9.7 mg/dL (8.5-10.1); Carbon Dioxide 32 mmol/L (21-32); Chloride 100 mmol/L (98-108); Cholesterol 124 mg/dL (0-200); Creatine Kinase 89 U/L (39-308); Estimated Glomerular Filt Rate 46; Glucose 110 mg/dL (70-99); HDL Direct 61 mg/dL (40-60); LDL Cholesterol Calculated 48 mg/dL (<130); Osmolality Calculated 287 mOsm/kg (285-295); Potassium 4.7 mmol/L (3.5-5.1); Prostate Specific Antigen 1.9 ng/mL (< OR = 4.0); Sodium 137 mmol/L (136-145); Total Protein 7.9 g/dL (6.4-8.2); Triglycerides 75 mg/dL (0-150)
== END 2022-10-05 07:25 | disposition home or self-care (01) ==
LOC: CHSLAB 07:26
PROVIDERS: PCP Internal Medicine; Visit Provider Internal Medicine
DX: R73.01 Impaired fasting glucose (principal); I12.9 Hypertensive chronic kidney disease with stage 1 through stage 4 chronic kidney disease, or unspecified chronic kidney disease; E78.2 Mixed hyperlipidemia; N18.31 Chronic kidney disease, stage 3a; Z12.5 Encounter for screening for malignant neoplasm of prostate
CPT/HCPCS: 36415; 80053; 80061; 81003; 82550; 83036; 84153; 85025; G0103

== ENCOUNTER 2022-11-07 12:29 | Outpatient (CLI) | payer MEDICARE, OTHER, SELFPAY ==
--- NOTE | ~2022-11-07 | US_ITS ---
US thyroid INDICATION: Thyroid nodule TECHNIQUE: Real-time sonographic images of the thyroid gland were obtained. COMPARISON: No prior studies for comparison. FINDINGS: The right thyroid lobe measures 4.1 x 1.6 x 1.7 cm. The left thyroid lobe measures 4 x 1.3 x 1.7 cm. There is normal echotexture and echogenicity throughout the thyroid gland. There is a oval mostly solid hypoechoic, wider than tall, smoothly marginated mass without echogenic foci in the rig ht lobe measuring 1 cm, TR 4. There is a focal macrocalcification measuring 2 mm in the left lobe. No discrete left thyroid mass. Normal vascular flow is present. IMPRESSION: 1. Right thyroid mass measuring 1 cm, TR 4. Recommend follow-up ultrasound in 12 months. Reviewed, dictated and finalized at location A.
--- NOTE | ~2022-11-07 | CT_ITS ---
EXAMINATION: CT lung screening DATE: 11/07/2022 13:05 INDICATION: Personal history of tobacco dependence TECHNIQUE: Computed tomography (CT) of the chest was performed without intravenous contrast. The dose -length product was 113.51 mGy-cm. Automated exposure control and iterative reconstruction technique were employed. COMPARISON: CT dated 03/23/2021 FINDINGS: There is mild atherosclerosis of the aorta and coronary arteries. Heart size normal. No sig nificant pleural or pericardial effusion. Visualized aspects of the abdomen are unremarkable. No thor acic lymphadenopathy. No endobronchial lesions. No pneumothorax. No focal airspace consolidation. The re are a few small calcified granulomas of the lower lungs. There are a few small 1-2 mm nodules whic h are not clearly calcified. Mild thoracic spondylosis. IMPRESSION: 1. Lung-RADS category 2: Benign appearance or behavior. Continue annual screening with noncontrast lo w-dose chest CT in 12 months. Reviewed, dictated and finalized at location A. IMPRESSION: 1. Lung-RADS category 2: Benign appearance or behavior. Continue annual screeni ng with noncontrast low-dose chest CT in 12 months.
== END 2022-11-07 12:30 | disposition home or self-care (01) ==
LOC: CHSIMG 12:30
PROVIDERS: PCP Internal Medicine; Visit Provider Internal Medicine
DX: Z12.2 Encounter for screening for malignant neoplasm of respiratory organs (principal); Z87.891 Personal history of nicotine dependence; E07.89 Other specified disorders of thyroid
CPT/HCPCS: 71271; 76536

== ENCOUNTER 2022-11-14 12:48 | Outpatient (CLI) | payer MEDICARE, OTHER, SELFPAY ==
[2022-11-14 13:35] LABS: Alanine Aminotransferase 33 U/L (16-63); Albumin Level 3.9 g/dL (3.4-5.0); Alkaline Phosphatase 64 U/L (46-116); Anion Gap 6 mmol/L (8-16); Aspartate Amino Transferase 19 U/L (15-37); Bilirubin,Total 0.6 mg/dL (0.00-1.00); Blood Urea Nitrogen 23 mg/dL (7-18); Calcium 8.9 mg/dL (8.5-10.1); Carbon Dioxide 32 mmol/L (21-32); Chloride 102 mmol/L (98-108); Estimated Glomerular Filt Rate 42; Glucose 88 mg/dL (70-99); Osmolality Calculated 292 mOsm/kg (285-295); Potassium 4.3 mmol/L (3.5-5.1); Sodium 140 mmol/L (136-145); Total Protein 6.9 g/dL (6.4-8.2)
== END 2022-11-14 12:49 | disposition home or self-care (01) ==
LOC: CHSLAB 12:52
PROVIDERS: PCP Internal Medicine
DX: G40.209 Localization-related (focal) (partial) symptomatic epilepsy and epileptic syndromes with complex partial seizures, not intractable, without status epilepticus (principal)
CPT/HCPCS: 36415; 80053

== ENCOUNTER 2023-01-06 06:57 | Emergency (ER) | payer MEDICARE, OTHER, SELFPAY ==
[2023-01-06] VITALS (50 sets, daily range): BP systolic 133–176; BP diastolic 63–103; PULSE 60–83; RESP 13–24; TEMP 36.7; O2SAT 94–99
--- NOTE | ~2023-01-06 | XR_ITS ---
EXAMINATION: XR chest 1V portable DATE: 01/06/2023 07:49 INDICATION: Midsternal chest pain. TECHNIQUE: A single frontal view of the chest was obtained. COMPARISON: Chest 2 views 02/17/2019, chest CT 11/07/2022 FINDINGS: There is mild atelectasis versus scarring in right lower lung zone. No pleural effusion or pneumothorax. The heart size is normal. IMPRESSION: 1. Mild atelectasis versus scarring in right lower lung zone. Reviewed, dictated and finalized at location A.
--- NOTE | 2023-01-06 07:03 | ED.GENADULT ---
HPI - General Adult General Stated complaint: chest pain Time Seen by Provider: 01/06/23 07:01 Related Data Home Medications Medication Instructions Recorded Confirmed amlodipine 10 mg tablet 10 mg PO DAILY 07/14/20 07/14/20 atorvastatin 80 mg tablet 80 mg PO DAILY 07/14/20 07/14/20 carbamazepine 100 mg 100 mg PO BID 07/14/20 07/14/20 tablet,extended release,12 hr (Tegretol XR) cilostazol 100 mg tablet 100 mg PO BID 07/14/20 07/14/20 lisinopril 5 mg tablet 5 mg PO DAILY 07/14/20 07/14/20 meclizine 25 mg tablet 25 - 50 mg PO Q4-6H PRN Dizziness 07/14/20 07/14/20 metoprolol tartrate 25 mg tablet 25 mg PO BID 07/14/20 07/14/20 pantoprazole 40 mg tablet,delayed 40 mg PO DAILY 07/14/20 07/14/20 release tamsulosin 0.4 mg capsule 0.4 mg PO DAILY 07/14/20 07/14/20 Allergies Allergy/AdvReac Type Severity Reaction Status Date / Time influenza virus vaccine, Allergy Unknown Unknown Verified 07/14/20 07:45 specific Discharge Plan Discharge Prescriptions: No Action cilostazol 100 mg tablet 100 mg PO BID atorvastatin 80 mg tablet 80 mg PO DAILY carbamazepine [Tegretol XR] 100 mg tablet extended release 12 hr 100 mg PO BID tamsulosin 0.4 mg capsule 0.4 mg PO DAILY meclizine 25 mg tablet 25 - 50 mg PO Q4-6H PRN (Reason: Dizziness) amlodipine 10 mg tablet 10 mg PO DAILY pantoprazole 40 mg tablet,delayed release (DR/EC) 40 mg PO DAILY lisinopril 5 mg tablet 5 mg PO DAILY metoprolol tartrate 25 mg tablet 25 mg PO BID meclizine 25 mg tablet 25 mg PO Q4-6H Qty: 60 1RF Follow-up/Referrals: Laura Ball MD [Primary Care Provider] -
--- NOTE | 2023-01-06 07:35 | ECG_ITS ---
Measurements Intervals [place] Rate: 61 P: 47 [place]: 172 QRS: 71 QRSD: 94 T: 47 QT: 369 QTc: 374 Interpretive Statements SINUS RHYTHM INCOMPLETE RIGHT BUNDLE BRANCH BLOCK BORDERLINE ECG COMPARED TO ECG 07/14/2020 07:34:04 NO SIGNIFICANT CHANGES Electronically Signed On 01-06-2023 7:39:37 CDT by Russell Shipman D.O.
[2023-01-06 07:54] LABS: Basophils Absolute Auto 0.05 K/mm3 (0.00-0.10); Basophils Percent Auto 0.9 % (0.0-1.0); Eosinophils Absolute Auto 0.17 K/mm3 (0.02-0.50); Eosinophils Percent Auto 2.9 % (1.0-6.0); Hematocrit 43.6 % (37.0-46.0); Hemoglobin 14.9 g/dL (12.4-15.3); Immature Granulocyte Absolute 0.01 K/mm3 (0.00-0.00); Immature Granulocyte Percent A 0.2 % (0.0-0.0); Immature Platelet Fraction Pct 1.2 % (1.0-7.0); Mean Corpuscular HGB Conc 34.2 g/dL (32.0-36.0); Mean Corpuscular Hemoglobin 29.9 pg (27.0-31.0); Mean Corpuscular Volume 87.4 fL (78.0-102.0); Mean Platelet Volume 8.3 fl (8.7-11.0); Monocytes Absolute Auto 0.41 K/mm3 (0.10-0.90); Monocytes Percent Auto 7.1 % (2.0-11.0); Neutrophils Absolute Auto 4.1 K/mm3 (1.7-7.2); Neutrophils Percent Auto 69.9 % (50.0-70.0); Platelet Count Result 149 K/mm3 (150-420); Red Blood Count 4.99 M/mm3 (4.70-6.10); Red Cell Distribution Width 12.5 % (11.6-14.4); White Blood Count 5.8 K/mm3 (4.8-10.8)
--- NOTE | 2023-01-06 07:56 | ED.GENADULT ---
HPI - General Adult General Chief complaint: Chest Pain Stated complaint: chest pain Time Seen by Provider: 01/06/23 07:01 Source: patient History of Present Illness HPI narrative: 72-year-old male presenting with left-sided chest pain. Patient states his symptoms started approximately 2 days ago. He describes his symptoms as intermittent burning pain on the left side of his chest. He states his symptoms last for a few seconds when they occur. He denies any other associated symptoms. Onset (ago): day(s) Related Data Home Medications Medication Instructions Recorded Confirmed amlodipine 10 mg tablet 10 mg PO DAILY 07/14/20 01/06/23 atorvastatin 80 mg tablet 80 mg PO DAILY 07/14/20 01/06/23 carbamazepine 100 mg 100 mg PO BID 07/14/20 01/06/23 tablet,extended release,12 hr (Tegretol XR) cilostazol 100 mg tablet 100 mg PO BID 07/14/20 01/06/23 lisinopril 5 mg tablet 5 mg PO DAILY 07/14/20 01/06/23 meclizine 25 mg tablet 25 - 50 mg PO Q4-6H PRN Dizziness 07/14/20 01/06/23 metoprolol tartrate 25 mg tablet 25 mg PO BID 07/14/20 01/06/23 pantoprazole 40 mg tablet,delayed 40 mg PO DAILY 07/14/20 01/06/23 release tamsulosin 0.4 mg capsule 0.4 mg PO DAILY 07/14/20 01/06/23 Allergies Allergy/AdvReac Type Severity Reaction Status Date / Time influenza virus vaccine, Allergy Unknown Unknown Verified 01/06/23 07:21 specific Exam Narrative: Clear lung sounds to auscultation. No increased work of breathing. No accessory heart sounds. My interpretation of EKG is normal sinus rhythm at a rate of 61 beats per minute. Normal axis. Appropriate intervals. No ST segment elevations or depressions. Nonischemic EKG. All other systems otherwise unremarkable Course Vital Signs Vital signs: Vital Signs Temperature 36.7 C 01/06/23 07:03 Pulse Rate 63 01/06/23 07:03 Respiratory Rate 18 01/06/23 07:03 Blood Pressure 176/73 H 01/06/23 07:03 Pulse Oximetry 94 01/06/23 07:03 Oxygen Delivery Room Air 01/06/23 07:03 Temperature 36.7 C 01/06/23 07:03 Pulse Rate 75 01/06/23 12:05 Respiratory Rate 20 01/06/23 12:00 Blood Pressure 149/70 H 01/06/23 12:00 Pulse Oximetry 95 01/06/23 12:00 Oxygen Delivery Room Air 01/06/23 07:03 Medical Decision Making MDM Narrative Medical decision making narrative: differential diagnosis includes but not limited to ACS versus dissection versus pneumothorax versus GI versus musculoskeletal. Will evaluate labs and imaging. Patient declining pain medication at this time. Unremarkable workup at this time. Negative troponin. Nonischemic EKG. My interpretation official read of imaging is all that acute pathological findings. However, patient has an extensive cardiac history to include an IL with stent placement over 20 years ago. He has a concerning story and history. He will need to be admitted for further evaluation. He is amenable to this plan. He was accepted at [facility] in [place]. He is awaiting transport. He is comfortable and hemodynamically stable at time of disposition. Vital Signs Vital Signs: Vital Signs Temperature 36.7 C 01/06/23 07:03 Pulse Rate 63 01/06/23 07:03 Respiratory Rate 18 01/06/23 07:03 Blood Pressure 176/73 H 01/06/23 07:03 Pulse Oximetry 94 01/06/23 07:03 Oxygen Delivery Room Air 01/06/23 07:03 Temperature 36.7 C 01/06/23 07:03 Pulse Rate 75 01/06/23 12:05 Respiratory Rate 20 01/06/23 12:00 Blood Pressure 149/70 H 01/06/23 12:00 Pulse Oximetry 95 01/06/23 12:00 Oxygen Delivery Room Air 01/06/23 07:03 Lab Data Lab results reviewed: Yes I reviewed the patient's lab results. 01/06/23 07:44 01/06/23 07:44 Labs: Lab Results 01/06/23 Range/Units 07:44 WBC 5.8 (4.8-10.8) K/mm3 RBC 4.99 (4.70-6.10) M/mm3 Hgb 14.9 (12.4-15.3) g/dL Hct 43.6 (37.0-46.0) % MCV 87.4 (78.0-102.0) fL MCH 29.9 (27.0-31.0)
--- NOTE | 2023-01-06 08:56 | ECG_ITS ---
Measurements Intervals [place] Rate: 64 P: 45 [place]: 171 QRS: 71 QRSD: 93 T: 40 QT: 369 QTc: 382 Interpretive Statements SINUS RHYTHM INCOMPLETE RIGHT BUNDLE BRANCH BLOCK BASELINE ARTIFACT- I, II, III, AVR, AVL, AVF, V2 BORDERLINE ECG COMPARED TO ECG 01/06/2023 07:06:44 NO SIGNIFICANT CHANGES Electronically Signed On 01-06-2023 9:02:26 CDT by Russell Shipman D.O.
[2023-01-06 09:01] LABS: Alanine Aminotransferase 28 U/L (6-50); Albumin Level 4.1 g/dL (3.5-5.1); Alkaline Phosphatase 58 U/L (38-126); Anion Gap 7 mmol/L (8-16); Aspartate Amino Transferase 28 U/L (17-59); Bilirubin,Total 0.5 mg/dL (0.2-1.3); Blood Urea Nitrogen 24 mg/dL (9-20); Calcium 8.9 mg/dL (8.4-10.2); Carbon Dioxide 28 mmol/L (22-30); Chloride 98 mmol/L (98-107); Estimated CRCL calculation 41 ml/min; Estimated Glomerular Filt Rate 50; Glucose 112 mg/dL (65-110); Lipase 105 U/L (23-300); Osmolality Calculated 281 mOsm/kg (285-295); Potassium 4.8 mmol/L (3.4-5.0); Sodium 133 mmol/L (137-145)
[2023-01-06 09:12] LABS: Troponin I < 0.012 ng/mL (0.000-0.034)
--- NOTE | 2023-01-06 09:48 | PC.NURSE ---
0855 pt complaining of chest pain 11/21 repeat EKG completed and shown to doctor 0902 pt states pain down to a / at this time
== END 2023-01-06 14:35 | disposition short-term general hospital (02) ==
PROVIDERS: Emergency Provider Emergency Medicine; PCP Internal Medicine
DX: R07.9 Chest pain, unspecified (principal); Z79.899 Other long term (current) drug therapy
CPT/HCPCS: 36415; 71045; 80053; 83690; 84484; 85025; 85055; 93005; 99285

== ENCOUNTER 2023-01-15 12:47 | Outpatient (CLI) | payer MEDICARE, OTHER, SELFPAY ==
--- NOTE | ~2023-01-15 | US_ITS ---
Thyroid ultrasound. Clinical History: Thyroid nodule COMPARISON: 11/07/2022 Findings: Real-time sonography of the thyroid gland was performed. The right lobe measures 5.7 x 1.9 x 1.9 cm. The left lobe measures 4.9 x 1.7 x 1.7 cm. The isthmus is 9 mm in AP diameter. There is a 1.0 cm hypoechoic solid, somewhat heterogeneous nodule, circumscribed, at the right mid to lower pole. Impression: Stable right thyroid lobe nodule, as detailed above. Annual follow-up advised. Reviewed, dictated and finalized at location . Impression: Stable right thyroid lobe nodule, as detailed above. Annual follow-up advised.
== END 2023-01-15 12:48 | disposition home or self-care (01) ==
LOC: CHSIMG 12:49
PROVIDERS: PCP Internal Medicine; Visit Provider Internal Medicine
DX: E04.1 Nontoxic single thyroid nodule (principal); R13.10 Dysphagia, unspecified
CPT/HCPCS: 76536

== ENCOUNTER 2023-04-24 06:59 | Outpatient (CLI) | payer MEDICARE, SELFPAY ==
[2023-04-24 07:13] LABS: Basophils Absolute Auto 0.07 K/mm3 (0.00-0.10); Basophils Percent Auto 1.2 % (0.0-1.0); Eosinophils Absolute Auto 0.14 K/mm3 (0.02-0.50); Eosinophils Percent Auto 2.3 % (1.0-6.0); Hematocrit 44.2 % (37.0-46.0); Hemoglobin 15.2 g/dL (12.4-15.3); Immature Granulocyte Absolute 0.02 K/mm3 (0.00-0.00); Immature Granulocyte Percent A 0.3 % (0.0-0.0); Lymphocytes Absolute Auto 1.53 K/mm3 (1.10-4.50); Lymphocytes Percent Auto 25.2 % (18.0-42.0); Mean Corpuscular HGB Conc 34.4 g/dL (32.0-36.0); Mean Corpuscular Hemoglobin 29.7 pg (27.0-31.0); Mean Corpuscular Volume 86.5 fL (78.0-102.0); Mean Platelet Volume 8.1 fl (8.7-11.0); Monocytes Absolute Auto 0.56 K/mm3 (0.10-0.90); Monocytes Percent Auto 9.2 % (2.0-11.0); Neutrophils Absolute Auto 3.8 K/mm3 (1.7-7.2); Neutrophils Percent Auto 61.8 % (50.0-70.0); Platelet Count Result 130 K/mm3 (150-420); Red Blood Count 5.11 M/mm3 (4.70-6.10); Red Cell Distribution Width 12.5 % (11.6-14.4); White Blood Count 6.1 K/mm3 (4.8-10.8)
[2023-04-24 07:43] LABS: Appearance Urine Clear (Clear); Bilirubin Urine Negative (Negative); Blood Urine Negative (Negative); Color Urine Yellow (Yellow); Glucose Urine UA Negative (Negative); Hemoglobin A1C 5.6 % (<5.7); Ketones Urine Negative (Negative); Leukocyte Esterase Ur Negative (Negative); Nitrate Urine Negative (Negative); Protein Urine Negative (Negative); Specific Grav Ur 1.025 (1.010-1.020); Urobilinogen Urine 0.2 mg/dL (0.2-1.0)
[2023-04-24 07:48] LABS: Add Urine Microscopic? NO
[2023-04-24 08:14] LABS: Alanine Aminotransferase 37 U/L (16-63); Albumin Level 3.5 g/dL (3.4-5.0); Alkaline Phosphatase 57 U/L (46-116); Anion Gap 6 mmol/L (8-16); Aspartate Amino Transferase 17 U/L (15-37); Bilirubin,Total 0.6 mg/dL (0.00-1.00); Blood Urea Nitrogen 22 mg/dL (7-18); Calcium 8.9 mg/dL (8.5-10.1); Carbon Dioxide 31 mmol/L (21-32); Chloride 99 mmol/L (98-108); Cholesterol 118 mg/dL (0-200); Creatine Kinase 72 U/L (39-308); Estimated Glomerular Filt Rate 43; Free T3 2.57 pg/mL (2.18-3.98); Free T4 Free Thyroxine 0.98 ng/dL (0.76-1.46); Glucose 109 mg/dL (70-99); HDL Direct 55 mg/dL (40-60); LDL Cholesterol Calculated 47 mg/dL (<130); Osmolality Calculated 286 mOsm/kg (285-295); Potassium 4.7 mmol/L (3.5-5.1); Sodium 136 mmol/L (136-145); Total Protein 7.6 g/dL (6.4-8.2); Triglycerides 79 mg/dL (0-150)
== END 2023-04-24 07:00 | disposition home or self-care (01) ==
LOC: CHSLAB 07:01
PROVIDERS: PCP Internal Medicine; Visit Provider Internal Medicine
DX: I10 Essential (primary) hypertension (principal); E78.2 Mixed hyperlipidemia; R73.01 Impaired fasting glucose; N18.4 Chronic kidney disease, stage 4 (severe); E04.1 Nontoxic single thyroid nodule
CPT/HCPCS: 36415; 80053; 80061; 81003; 82550; 83036; 84439; 84443; 84481; 85025

== ENCOUNTER 2023-08-28 12:24 | Outpatient (CLI) | payer MEDICARE, OTHER, SELFPAY ==
--- NOTE | ~2023-08-28 | US_ITS ---
EXAMINATION: US thyroid DATE: 08/28/2023 13:01 INDICATION: Nontoxic single thyroid nodule. TECHNIQUE: Multiple ultrasound images of the thyroid were obtained. COMPARISON: Ultrasound 01/15/2023, 11/07/2022 FINDINGS: The right thyroid lobe measures 5.4 x 1.6 x 2.4 cm. The left thyroid lobe measures 4.6 x 1.2 x 2.1 c m. In the right thyroid lobe, there is a 10 mm solid, hypoechoic, wider than tall nodule with smooth margins without echogenic foci (TR4), stable from 11/07/22. In the right thyroid lobe, there is an 11 mm solid, isoechoic, wider than tall nodule with ill-defined margin and peripheral calcifications (T R4). IMPRESSION: 1. Small thyroid nodules. Thyroid ultrasound is recommended in one year. Reviewed, dictated and finalized at location E.
== END 2023-08-28 12:25 | disposition home or self-care (01) ==
LOC: CHSIMG 12:25
PROVIDERS: PCP Internal Medicine
DX: E04.2 Nontoxic multinodular goiter (principal)
CPT/HCPCS: 76536

== ENCOUNTER 2023-11-01 07:00 | Outpatient (CLI) | payer MEDICARE, SELFPAY ==
[2023-11-01 08:06] LABS: Hemoglobin 15.7 g/dL (12.4-15.3); Mean Corpuscular HGB Conc 34.9 g/dL (32-36); Mean Corpuscular Hemoglobin 29.6 pg (27.0-31.0); Mean Corpuscular Volume 84.9 fL (78.0-102.0); Mean Platelet Volume 8.7 fl (8.7-11.0); Platelet Count Result 143 K/mm3 (150-420); Red Cell Distribution Width 12.7 % (11.6-14.4); White Blood Count 4.3 K/mm3 (4.8-10.8)
[2023-11-01 08:12] LABS: MALB Creatinine Ratio 42.6 mg/g (0-30); Microalbumin Urine Random < 13.0 mg/L
[2023-11-01 08:19] LABS: Alanine Aminotransferase 27 U/L (16-63); Albumin Level 3.8 g/dL (3.4-5.0); Alkaline Phosphatase 69 U/L (46-116); Anion Gap 8 mmol/L (4-12); Appearance Urine Clear (Clear); Aspartate Amino Transferase 18 U/L (15-37); Bilirubin Urine Negative (Negative); Bilirubin,Total 0.5 mg/dL (0.00-1.00); Blood Urea Nitrogen 19 mg/dL (7-18); Blood Urine Negative (Negative); Calcium 9.2 mg/dL (8.5-10.1); Carbon Dioxide 28 mmol/L (21-32); Chloride 100 mmol/L (98-108); Cholesterol 118 mg/dL (0-200); Color Urine Light Yellow (Yellow); Creatine Kinase 79 U/L (39-308); Estimated Glomerular Filt Rate 58; Free T3 2.39 pg/mL (2.18-3.98); Glucose 104 mg/dL (70-99); Glucose Urine UA Negative (Negative); HDL Direct 56 mg/dL (40-60); Ketones Urine Negative (Negative); LDL Cholesterol Calculated 47 mg/dL (<130); Leukocyte Esterase Ur Negative (Negative); Nitrate Urine Negative (Negative); Osmolality Calculated 284 mOsm/kg (285-295); Potassium 4.2 mmol/L (3.5-5.1); Protein Urine Negative (Negative); Sodium 136 mmol/L (136-145); Specific Grav Ur <= 1.005 (1.010-1.020); Total Protein 7.4 g/dL (6.4-8.2); Triglycerides 73 mg/dL (0-150); Urobilinogen Urine 0.2 mg/dL (0.2-1.0)
[2023-11-01 08:22] LABS: Hemoglobin A1C 5.7 % (<5.7)
[2023-11-01 08:25] LABS: Add Urine Microscopic? NO
[2023-11-01 08:32] LABS: Thyroid Stimulating Hormone Reflex 0.74 u/IU/mL (0.36-3.74)
== END 2023-11-01 07:01 | disposition home or self-care (01) ==
LOC: CHSLAB 07:03
PROVIDERS: PCP Internal Medicine; Visit Provider Internal Medicine
DX: E78.2 Mixed hyperlipidemia (principal); E04.1 Nontoxic single thyroid nodule; N18.31 Chronic kidney disease, stage 3a; R73.01 Impaired fasting glucose
CPT/HCPCS: 36415; 80053; 80061; 81003; 82043; 82550; 83036; 84443; 84481; 85027

== ENCOUNTER 2023-11-18 09:46 | Outpatient (CLI) | payer MEDICARE, OTHER, SELFPAY ==
--- NOTE | ~2023-11-18 | CT_ITS ---
CT Scan of the Chest without Contrast: Clinical Indication: Lung cancer screening, nicotine dependence Technique: Contiguous sections were acquired throughout the chest without intravenous contrast. Dose reduction technique was used on this scan by utilizing automated exposure control and iterative recon struction technique. The dose-length product (DLP) was 91.04 mGy-cm. COMPARISON: 11/07/2022 Findings: There is no evidence of any significant mediastinal, hilar or axillary lymphadenopathy. Coronary sandie ry calcifications are present. There is no evidence of pleural or pericardial effusion. The lungs are clear. No pulmonary nodules or infiltrates are noted. Images through the upper abdomen reveal no abnormalities. Impression: Lung RADS 1: Negative. 12 month follow-up screening CT advised. Reviewed, dictated and finalized at location . Impression: Lung RADS 1: Negative. 12 month follow-up screening CT advised.
== END 2023-11-18 09:47 | disposition home or self-care (01) ==
PROVIDERS: PCP Internal Medicine; Visit Provider Internal Medicine
DX: Z12.2 Encounter for screening for malignant neoplasm of respiratory organs (principal); Z87.891 Personal history of nicotine dependence
CPT/HCPCS: 71271

== ENCOUNTER 2024-04-23 04:30 | Emergency (ER) | payer MEDICARE, OTHER, SELFPAY ==
--- NOTE | ~2024-04-23 | CT_ITS ---
EXAMINATION: CT brain wo con DATE: 04/23/2024 05:26 INDICATION: Dizziness. TECHNIQUE: Computed tomography (CT) of the head was performed without intravenous contrast. The mA wa s adjusted according to patient size. Iterative reconstruction technique was employed. The dose-lengt h product was 681.00 mGy-cm. COMPARISON: Head CT 05/13/2017 FINDINGS: There are old infarcts in the cerebellum bilaterally. There are old infarcts in the right t halamus and right basal ganglia. There is an old infarct in the left caudate nucleus. There is an old infarct in right frontal parietal region. There is no intracranial hemorrhage, acute infarction, or abnormal intracranial mass lesion. The ventricles are normal in size. There is total opacification of right maxillary sinus with volume loss. There is mild mucosal thickening in the paranasal sinuses. T he orbits are normal. The mastoid air cells are normal. IMPRESSION: 1. Old infarcts in the cerebellum, right thalamus, bilateral basal ganglia, and right frontal parieta l region. 2. Silent sinus syndrome involving right maxillary sinus. Reviewed, dictated and finalized at location A. ORATE COMMUNICATIONS SPECIALIST IMPRESSION: 1. Old infarcts in the cerebellum, right thalamus, bilateral basal ganglia, and right frontal parietal region. 2. Silent sinus syndrome involving right maxillary sinus.
--- NOTE | ~2024-04-23 | XR_ITS ---
EXAMINATION: XR shoulder RT min 2V DATE: 04/23/2024 05:26 INDICATION: Right shoulder pain after shoveling stone. TECHNIQUE: 4 views of right shoulder were obtained. COMPARISON: None. FINDINGS: Bone alignment is normal. No fracture. There is mild osteoarthritis of glenohumeral joint a nd severe osteoarthritis of acromioclavicular joint. There is calcific tendinitis of the rotator cuff . IMPRESSION: 1. Polyarticular osteoarthritis. 2. Calcific tendinitis of the rotator cuff. Reviewed, dictated and finalized at location A. MING MACHINE OPERATOR
[2024-04-23 04:37] VITALS: BP 168/80; PULSE 63; RESP 14; TEMP 36.6; O2SAT 96
--- NOTE | 2024-04-23 04:47 | ECG_ITS ---
Test Date: 2024-04-23 04:34:37 Measurements Intervals [place] Rate: 64 P: 27 RI: 158 QRS: 74 QRSD: 94 T: 59 QT: 370 QTc: 383 Interpretive Statements SINUS RHYTHM INCOMPLETE RIGHT BUNDLE BRANCH BLOCK No previous ECG available for comparison Electronically Signed On 04-23-2024 16:18:53 [employer] by Osiel Guerrero M.D.
--- NOTE | 2024-04-23 04:49 | ED_ITS ---
HPI - General Adult General Chief complaint: Extremity Problem,Nontraumatic Stated complaint: upper extremity pain Time Seen by Provider: 04/23/24 04:40 History of Present Illness HPI narrative: Anatoly is a 74M with a PMH of CVA with residual dizziness, and CAD as well as GERD, BPH and HLD that presented to the ED with a couple concerns. He has had worsening pain in his right shoulder for over a week. It started after he shoveled snow. It is TTP and also hurts with movement. He an aspirin before coming in. He rolled over and it was very painful so he came to the ED. He also reports that he has had a lot of constant dizziness/dysequilibrium for the last few days worse than normal. No CP, dyspnea, fevers or chills. Related Data Home Medications ?Medication ?Instructions ?Recorded ?Confirmed ?Last Taken ?Type amlodipine 10 mg tablet 10 mg PO DAILY 07/14/20 04/23/24 01/06/23 History atorvastatin 80 mg tablet 80 mg PO DAILY 07/14/20 04/23/24 01/06/23 History carbamazepine 100 mg 100 mg PO BID 07/14/20 04/23/24 01/06/23 History tablet,extended release,12 hr (Tegretol XR) cilostazol 100 mg tablet 100 mg PO BID 07/14/20 04/23/24 01/06/23 History lisinopril 5 mg tablet 5 mg PO DAILY 07/14/20 04/23/24 01/06/23 History meclizine 25 mg tablet 25 - 50 mg PO Q4-6H PRN Dizziness 07/14/20 01/06/23 Unknown History metoprolol tartrate 25 mg tablet 25 mg PO BID 07/14/20 04/23/24 01/06/23 History pantoprazole 40 mg tablet,delayed 40 mg PO DAILY 07/14/20 04/23/24 01/06/23 History release tamsulosin 0.4 mg capsule 0.4 mg PO DAILY 07/14/20 04/23/24 01/06/23 History Allergies Allergy/AdvReac Type Severity Reaction Status Date / Time influenza virus vaccine, Allergy Unknown Unknown Verified 04/23/24 05:13 specific Review of Systems 2 Review of Systems: All systems reviewed & are unremarkable except as noted in HPI and below Exam 2 Const: General: cooperative, healthy appearing, comfortable, no acute distress, well developed, alert, awake and Physically active O rientation/consciousness: oriented to person, oriented to place and oriented to time HENMT: Head: normal to inspection, normocephalic and atraumatic Ears: h earing grossly normal bilaterally and external ears normal Face/Nose/Sinus: N ormal external nose present Eyes: General: appearance normal, both eyes and all related structures P eriorbital: periorbital findings normal Sclera: sclerae normal Pupils: E qual, round and reactive pupils present Neck: Neck: normal visual inspection Chest: Chest palpation & inspection: normal inspection of the chest Resp: Effort & Inspection: normal respiratory effort, able to speak in complete sentences and no respiratory distress Auscultation: clear to auscultation bilaterally Cardio: Jugular venous distension: no JVD Rate: regular rate Rhythm: r egular rhythm GI: Inspection: normal to inspection GI Palp: Yes Soft to palpation A uscultation: normal bowel sounds Skin: General skin exam: normal color and no rashes or lesions noted Neuro: General: oriented to person, oriented to place and oriented to time Cranial nerves: Yes Equal, round and reactive pupils present Speech: normal speech Other: HINTS exam showed vertical nystagmus, and a corrective saccade as well as skewed eyes Extrem: General: normal to inspection Other: right shoulder warm and TTP. He cannot flex or abduct greater than 90 degrees. Course Course Emergency Course: -ordered flexeril and morphine for pain. Ordered labs, radiographs as well as CT brain His EKG showed NSR with a rate of 64, normal axis and no ST elevation/depression CT brain showed encephalomalacia in the right frontoparietal lobe from a previous infarct. There is a chronic right basal ganglia infarct. No evidence of acute intracranial hemorrhage. Dougherty-white matter differentiation is maintained. Opacification of the right maxillary sinus. No calvarial abnormality. EXAMINATION: XR shoulder RT min 2V DATE: 04/23/2024 05:26 INDICATION: Right shoulder pain after shoveling stone. TECHNIQUE: 4 views of right shoulder were obtained. COMPARISON: None. FINDINGS: Bone alignment is normal. No fracture. There is mild osteoarthritis of glenohumeral joint and severe osteoarthritis of acromioclavicular joint. There is calcific tendinitis of the rotator cuff. IMPRESSION: 1. Polyarticular osteoarthritis. 2. Calcific tendinitis of the rotator cuff. Lab work largely unremarkable. Dizziness: DDX includes CVA vs BPPV vs dehydration vs other. Will have patient continue atorvastatin and start daily aspirin for shoulder and CVA protection. It is recommended he f/u a PCP for both. . Shoulder pain is likely from the rotator cuff tendonitis vs tear. Vital Signs Vital signs: Vital Signs Temperature 97.8 F 04/23/24 04:37 Pulse Rate 63 04/23/24 04:37 Respiratory Rate 14 04/23/24 04:37 Blood Pressure 168/80 H 04/23/24 04:37 Pulse Oximetry 96 04/23/24 04:37 Oxygen Delivery Room Air 04/23/24 04:37 Temperature 97.8 F 04/23/24 04:37 Pulse Rate 63 04/23/24 04:37 Respiratory Rate 14 04/23/24 04:37 Blood Pressure 168/80 H 04/23/24 04:37 Pulse Oximetry 96 04/23/24 04:37 Oxygen Delivery Room Air 04/23/24 04:37 Medical Decision Making Vital Signs Vital Signs: Vital Signs Temperature 97.8 F 04/23/24 04:37 Pulse Rate 63 04/23/24 04:37 Respiratory Rate 14 04/23/24 04:37 Blood Pressure 168/80 H 04/23/24 04:37 Pulse Oximetry 96 04/23/24 04:37 Oxygen Delivery Room Air 04/23/24 04:37 Temperature 97.8 F 04/23/24 04:37 Pulse Rate 63 04/23/24 04:37 Respiratory Rate 14 04/23/24 04:37 Blood Pressure 168/80 H 04/23/24 04:37 Pulse Oximetry 96 04/23/24 04:37 Oxygen Delivery Room Air 04/23/24 04:37 Lab Data 04/23/24 05:24 04/23/24 05:24 Labs: Lab Results 04/23/24 Range/Units 05:24 WBC 5.5 (4.8-10.8) K/mm3 RBC 5.24 (4.70-6.10) M/mm3 Hgb 15.2 (12.4-15.3) g/dL Hct 44.6 (37.0-46.0) % MCV 85.1 (78.0-102.0) fL MCH 29.0 (27.0-31.0) pg MCHC 34.1 (32-36) g/dL RDW 12.8 (11.6-14.4) % Plt Count 149 L (150-420) K/mm3 MPV 8.4 L (8.7-11.0) fl Immature Gran % (Auto) 0.4 H (0.0-0.0) % Neut % (Auto) 58.0 (50.0-70.0) % Lymph % (Auto) 26.4 (18.0-42.0) % Travis % (Auto) 8.6 (2.0-11.0) % Eos % (Auto) 5.5 (1.0-6.0) % Baso % (Auto) 1.1 H (0.0-1.0) % Lymph # (Auto) 1.44 (1.10-4.50) K/mm3 Travis # (Auto) 0.47 (0.10-0.90) K/mm3 Eos # (Auto) 0.30 (0.02-0.50) K/mm3 Baso # (Auto) 0.06 (0.00-0.10) K/mm3 Abs Immat Gran (auto) 0.02 H (0.00-0.00) K/mm3 Absolute Neuts (auto) 3.17 (1.70-7.20) K/mm3 Absolute Nucleated RBC 0.00 (0.00-0.00) K/mm3 Nucleated RBC % 0.0 (0-0.0) % % Immature Plt Fraction 1.0 (1.0-7.0) % Sodium 139 (136-145) mmol/L Potassium 4.3 (3.5-5.1) mmol/L Chloride 102 (98-108) mmol/L Carbon Dioxide 29 (21-32) mmol/L Anion Gap 8 (4-12) mmol/L BUN 29 H (7-18) mg/dL Creatinine 1.49 H (0.70-1.30) mg/dL Estim Creat Clear Calc 40 ml/min Estimated GFR 46 L (59 - ) Glucose 115 H (70-99) mg/dL Calculated Osmolality 294 (285-295) mOsm/kg Uric Acid 5.0 (3.5-7.2) mg/dL Calcium 9.1 (8.5-10.1) mg/dL Magnesium 1.8 (1.8-2.4) mg/dL Total Bilirubin 0.5 (0.00-1.00) mg/dL AST 16 (15-37) U/L ALT 30 (16-63) U/L Alkaline Phosphatase 75 (46-116) U/L Troponin I 9.7 (0.00-60.4) ng/L Total Protein 7.6 (6.4-8.2) g/dL Albumin 4.1 (3.4-5.0) g/dL Discharge Plan Discharge Clinical Impression: Calcific tendinitis of right shoulder, Dizziness Patient Disposition: Home, Self-Care Condition: Stable Instructions: Dizziness (ED) Patient Language: [place] Prescriptions: New aspirin 81 mg capsule 81 mg PO DAILY Qty: 14 0RF No Action cilostazol 100 mg tablet 100 mg PO BID atorvastatin 80 mg tablet 80 mg PO DAILY carbamazepine [Tegretol XR] 100 mg tablet extended release 12 hr 100 mg PO BID tamsulosin 0.4 mg capsule 0.4 mg PO DAILY meclizine 25 mg tablet 25 - 50 mg PO Q4-6H PRN (Reason: Dizziness) amlodipine 10 mg tablet 10 mg PO DAILY pantoprazole 40 mg tablet,delayed release (DR/EC) 40 mg PO DAILY lisinopril 5 mg tablet 5 mg PO DAILY metoprolol tartrate 25 mg tablet 25 mg PO BID Follow-up/Referrals: Laura Ball MD [Primary Care Provider] -
[2024-04-23] MEDS: CYCLOBENZAPRINE HCL 10 MG TABLET PO (05:00)
[2024-04-23] MEDS: MORPHINE SULFATE (*CRX) 4 MG/ML INJ IM (05:00)
[2024-04-23 05:30] LABS: Basophils Absolute Auto 0.06 K/mm3 (0.00-0.10); Basophils Percent Auto 1.1 % (0.0-1.0); Eosinophils Percent Auto 5.5 % (1.0-6.0); Hematocrit 44.6 % (37.0-46.0); Hemoglobin 15.2 g/dL (12.4-15.3); Immature Granulocyte Absolute 0.02 K/mm3 (0.00-0.00); Immature Granulocyte Percent A 0.4 % (0.0-0.0); Lymphocytes Absolute Auto 1.44 K/mm3 (1.10-4.50); Lymphocytes Percent Auto 26.4 % (18.0-42.0); Mean Corpuscular HGB Conc 34.1 g/dL (32-36); Mean Corpuscular Volume 85.1 fL (78.0-102.0); Mean Platelet Volume 8.4 fl (8.7-11.0); Monocytes Absolute Auto 0.47 K/mm3 (0.10-0.90); Monocytes Percent Auto 8.6 % (2.0-11.0); Neutrophils Absolute Auto 3.17 K/mm3 (1.70-7.20); Platelet Count Result 149 K/mm3 (150-420); Red Blood Count 5.24 M/mm3 (4.70-6.10); Red Cell Distribution Width 12.8 % (11.6-14.4); White Blood Count 5.5 K/mm3 (4.8-10.8)
[2024-04-23 06:01] LABS: Alanine Aminotransferase 30 U/L (16-63); Albumin Level 4.1 g/dL (3.4-5.0); Alkaline Phosphatase 75 U/L (46-116); Anion Gap 8 mmol/L (4-12); Aspartate Amino Transferase 16 U/L (15-37); Bilirubin,Total 0.5 mg/dL (0.00-1.00); Blood Urea Nitrogen 29 mg/dL (7-18); Calcium 9.1 mg/dL (8.5-10.1); Carbon Dioxide 29 mmol/L (21-32); Chloride 102 mmol/L (98-108); Estimated CRCL calculation 40 ml/min; Estimated Glomerular Filt Rate 46; Glucose 115 mg/dL (70-99); Magnesium 1.8 mg/dL (1.8-2.4); Osmolality Calculated 294 mOsm/kg (285-295); Potassium 4.3 mmol/L (3.5-5.1); Sodium 139 mmol/L (136-145); Total Protein 7.6 g/dL (6.4-8.2); Troponin I 9.7 ng/L (0.00-60.4)
[2024-04-23 06:35] VITALS: BP 144/67; PULSE 51; RESP 18; TEMP 36.8; O2SAT 97
== END 2024-04-23 06:55 | disposition home or self-care (01) ==
PROVIDERS: Emergency Provider Family Medicine; PCP Internal Medicine
DX: M75.31 Calcific tendinitis of right shoulder (principal); R42 Dizziness and giddiness; E78.5 Hyperlipidemia, unspecified; I25.10 Atherosclerotic heart disease of native coronary artery without angina pectoris; K21.9 Gastro-esophageal reflux disease without esophagitis; N40.0 Benign prostatic hyperplasia without lower urinary tract symptoms; Z86.73 Personal history of transient ischemic attack (TIA), and cerebral infarction without residual deficits
CPT/HCPCS: 36415; 70450; 73030; 80053; 83735; 84484; 84550; 85025; 85055; 93005; 96372; 99284; A9270; J2270

== ENCOUNTER 2024-05-08 06:58 | Outpatient (CLI) | payer MEDICARE, OTHER, SELFPAY ==
--- OUTSIDE RECORDS SUMMARY | 2024-05-08 07:02 | XMS_ITS | Continuity of Care Document ---
Author Organization Formerly [facility]. If a dditional information is needed, contact Health Information Management at [phone] Address [address] [place] [address] Phone Care Team Providers Care Siebel Administrator Name Role Phone Unavailable Unavailable Unavailable Problems No contraindication to deep vein thrombosis (DVT) prophylaxis Onset:13-Feb-2018 Comments:Onset Date: [id number] TEJAL (acute kidney injury) Onset:13-Feb-2018 Comments:Onset Date: 20180213 Dehydration Onset:13-Feb-2018 Comments:Onset Date: 20180213 Near syncope Onset:13-Feb-2018 Comments:Onset Date: [id number] Vertigo Onset:13-Feb-2018 Mental Status Cognitive function finding 13-Feb-2018 Allergies and Adverse Reactions No Known Drug Allergies(Donis rgy) Onset: 13-Feb-2018 Medications amLODIPine 10 MG Oral Tablet ;10 MILLIGRAM PO BID Start:15-Feb-2018 Comments:10 MG PO BID amoxicillin 875 MG / clavula lily 125 MG Oral Tablet [Augmentin];875 MILLIGRAM PO BID Start:15-Feb-2018 Comments:875 MG PO BID meclizine hydrochloride 25 M G Oral Tablet;25 MILLIGRAM PO TID Start:15-Feb-2018 Comments:25 MG PO TID As Needed for DIZZINESS pantoprazole 40 MG Delayed R elease Oral Tablet [Protonix];40 MILLIGRAM PO DAILY Start:14-Feb-2018 Comments:40 MG PO DAILY lisinopril 5 MG Oral Tablet; 5 MILLIGRAM PO DAILY Start:14-Feb-2018 Status:Discontinued Comments:5 MG PO DAILY cilostazol 100 MG Oral Table t;100 MILLIGRAM PO BID Start:14-Feb-2018 Comments:100 MG PO BID amLODIPine 10 MG Oral Tablet ;10 MILLIGRAM PO DAILY Start:13-Feb-2018 Comments:10 MG PO DAILY metoprolol tartrate 25 MG Or al Tablet;12.5 MILLIGRAM PO BID Start:13-Feb-2018 Comments:12.5 MG PO BID atorvastatin 80 MG Oral Tabl et;80 MILLIGRAM PO BEDTIME Start:13-Feb-2018 Comments:80 MG PO BEDTIME acetaminophen 325 MG Oral Ta blet [Tylenol];325 - 650 PO Q4-6H Start:13-Feb-2018 Comments:325 - 650 MG PO Q4-6H As Needed for PAIN 12 HR carBAMazepine 100 MG E xtended Release Oral Tablet;200 MILLIGRAM PO Q12H Start:13-Feb-2018 Comments:200 MG PO Q12H Social History Smoking Status Ex-smoker Recorded: 13-Feb-2018
--- OUTSIDE RECORDS SUMMARY | 2024-05-08 07:02 | XMS_ITS | Encounter Summary ---
Author Organization [facility] Address [address] [place] [address] [place] [address] Care Team Providers Care Wrecking Mechanic Name Role Phone Laura Ball MD Primary Care Provider [phone] Wale Rodriguez MD Unavailable Unavailable Umang Kerr MD Unavailable Unavailable Gamaliel Dunaway MD Unavailable Unavail able Cole Alvarez MD Unavailable Encounter Details Date Type Department Care Team (Late st Contact Info) Description 08/02/2015 Abstract [facility] [address] [place] [address] Wale Rodriguez MD Social History Tobacco Use Types Packs/Day Years Used Date Smoking Tobacco: Every Day Cigarettes 1.5 40 Comments:Current Smoker 1- ppd x 40 years Alcohol Use Standard Drinks/Week Comments Yes 0 (1 standard drink = 0.6 oz pur e alcohol) Sex and Gender Information Value Date Recorded Sex Assigned at Not on file Legal Sex Male 11:13 PM CDT Gender Identity Not on file Sexual Orientation Not on file Occupation Industry Job Start Date Job End Date Retired Not on file Not on file Not on file documented as of this encounter Plan of Treatment Upcoming Encounters Date Type Department Care Team (Late Contact Info) Description 12/24/2024 9:[address] [address] [place] [address] Cole Alvarez MD [address] [place] [address] [phone] 12/24/2024 10:00 AM CDT Appointment [address] [place] [address] Cole Alvarez MD [address] [place] [address] 12/28/2024 10:45 AM CDT Office Visit [facility] [facility] [address] [place] [address] Cole Alvarez MD [address] [place] [address] documented as of this encounter Visit Diagnoses Not on filedocumented in this encounter Care Teams Wrecking Mechanic Relationship Specialty Start Date End Date Laura Ball MD [address] [place] [address] PCP - General INTERNAL MEDICINE 10/17/15 Wale Rodriguez MD [address] [place] [address] CARDIOVASCULAR DISEASE 10/17/15 07/24/17 Umang Kerr MD [address] [place] [address] [place] Director Home CARDIOVASCULAR DISEASE 07/25/17 09/24/20 Gamaliel Dunaway MD [address] [place] [address] Consulting Physician INTERVENTIONAL CARDIOLOGY 09/25/20 01/05/23 Cole Alvarez MD [address] [place] [address] Consulting Physician INTERNAL MEDICINE 09/20/21 documented as of this encounter
--- OUTSIDE RECORDS SUMMARY | 2024-05-08 07:02 | XMS_ITS | Continuity of Care Document ---
Author Name [facility] Organization [facility] Care Team Providers Care Funeral Service Practitioner/Embalmer Name Role Phone [facility] Unavailable Unavailable Medications Combined list of outpatient medications from [facility] of Defense and Veterans Affairs facilities.Medications provided include 1) outpatient medications from the last 15 months, and 2) patient-reported medications. Medication Details Route Status Patient Instructions Prescription Expires Prescription Number Last Dispense Date Ordering Provider Order Date Order Qty Source amLODIPine (U/D) 10 MG ORAL TAB Be careful if taking OTCs.Anthony e or use exactly as directed . Active 09/08/2024 [id number] 4 [address] [place] [address] Herman CHOU ([facility] amLODIPine 10 mg tablet 10 mg, Oral, Daily, # 90 EA, 0 total refill(s ), Hard Stop Oral (given by mouth) Discont inued 11/11/2023 90.0 Ambulat ory Pharmac y amLODIPine 10 mg tablet See Instruct ions, # 90 EA, 1 total refill(s ), Hard Stop Ordered 11/09/2024 90.0 Ambul at ory Pharmac y AMOXICILLIN (AMOXICILLI N), 500 MG, CAPSULE, ORAL, SANDOZ, 500 ea. BOTTLE Active [id number] 4 2023 21 Pharmac y Data Transac tion Service Facilit y atorvastati n (U/D) 80 MG ORAL TAB Take with food/mil k.Take or use exactly as directed .Obtain advice for OTCs.Do not take if .Avoid grapefru it and grapefru it juice. Active 05/27/2024 [id number] 4 [address] [place] [address] Herman [facility]OU [facility] atorvastati n (U/D) 80 MG ORAL TAB Take with food/mil k.Take or use exactly as directed .Obtain advice for OTCs.Do not take if .Avoid grapefru it and grapefru it juice. 11/21/2023 [id number] 3 [address] [place] [address] Herman ABDI ([facility]) atorvastati n 80 mg tablet 80 mg, Oral, Daily, # 90 EA, 1 total refill(s ), Hard Stop Oral (given by mouth) Ordered 11/09/2024 90.0 Ambul at ory Pharmac y atorvastati n 80 mg tablet 80 mg, Oral, Daily, # 90 EA, 1 total refill(s ), Hard Stop Oral (given by mouth) Discont inued 12/09/2023 90.0 Ambulat ory Pharmac y atorvastati n 80 mg tablet 80 mg, Oral, Daily, # 90 EA, 1 total refill(s ), Hard Stop Oral (given by mouth) Complet ed 11/21/2023 90.0 Ambulat ory Pharmac y Carbamazepi ne 100mg, 12 hour Extended Release Tablet May cause drowsine ss.Take or use exactly as directed .Obtain advice for OTCs.Brooks peace.Do not take if . Active 05/26/2024 [id number] 4 [address] [place] [address] Herman CHOU ([facility]) carBAMazepi ne XR (Sandoz) 100 mg tablet 100 mg, Oral, every 12 hr, # 180 EA, 1 total refill(s ), Hard Stop Oral (given by mouth) Discont inued 01/02/2024 180.0 Ambulat ory Pharmac y carBAMazepi ne XR (Taro) 100 mg tablet 100 mg, Oral, every 12 hr, # 180 EA, 1 total refill(s ), Hard Stop Oral (given by mouth) Discont inued 04/05/2024 180.0 Ambulat ory Pharmac y carBAMazepi ne XR (Taro) 100 mg tablet See Instruct ions, 0, # 45 EA, 0 total refill(s ), Hard Stop Ordered 04/02/2025 45.0 Ambul at ory Pharmac y cilostazol 100 mg tablet See Instruct ions, Oral, # 180 EA, 1 total refill(s ), Hard Stop Oral (given by mouth) Ordered 11/09/2024 180.0 Ambul at ory Pharmac y cilostazol 100 mg tablet See Instruct ions, # 180 EA, 0 total refill(s ), Hard Stop Discont inued 09/29/2023 180.0 Ambulat ory Pharmac y Lisinopril (Brand Name) Tablet 5 mg Oral Be careful if taking OTCs.Anthony e or use exactly as directed .Do not take if . Active 06/22/2024 [id number] 4 [address] [place] [address]) Lisinopril (Brand Name) Tablet 5 mg Oral Be careful if taking OTCs.Anthony e or use exactly as directed .Do not take if . 04/23/2024 [id number] 4 [address] [place] [address]) lisinopril 5 mg tablet 5 mg, Oral, # 90 EA, 0 total refill(s ), Hard Stop Oral (given by mouth) Discont inued 09/11/2023 90.0 Ambulat ory Pharmac y lisinopril 5 mg tablet See Instruct ions, # 90 EA, 1 total refill(s ), Hard Stop Ordered 11/09/2024 90.0 Ambul at ory Pharmac y meclizine 25 mg chew tablet See Instruct ions, # 540 EA, 0 total refill(s ), Hard Stop Complet ed 01/29/2024 540.0 Ambulat ory Pharmac y Metoprolol Tartrate (Lopressor) Tablet 25 mg Oral Be careful if taking OTCs.Anthony e with food/mil k.Take or use exactly as directed .May impair driving. May cause drowsine ss/dizzi ness. Active 05/27/2024 [id number] 4 [address] [place] [address]) metoprolol tartrate 25 mg tablet See Instruct ions, # 180 EA, 1 total refill(s ), Hard Stop Ordered 11/09/2024 180.0 Ambul at ory Pharmac y metoprolol tartrate 25 mg tablet 25 mg, Oral, BID, # 180 EA, 1 total refill(s ), Hard Stop Oral (given by mouth) Discont inued 11/11/2023 180.0 Ambulat ory Pharmac y Nitroglycer in (Nitroquick Eq.) Tablet Sublingual 0.4mg Sublingual Take or use exactly as directed .Do not chew or crush.Do not swallow whole. 11/21/2023 [id number] 3 2023 25 [facility] Herman CHOU ([facility] nitroglycer in 0.4 mg sublingual tablet [25EA] See Instruct ions, # 25 EA, 0 total refill(s ), Hard Stop Complet ed 11/21/2023 25.0 Ambulat ory Pharmac y pantoprazol e EC 40 mg tablet 40 mg, Oral, Daily, # 90 EA, 0 total refill(s ), Hard Stop Oral (given by mouth) Discont inued 11/11/2023 90.0 Ambulat ory Pharmac y pantoprazol e EC 40 mg tablet See Instruct ions, # 90 EA, 1 total refill(s ), Hard Stop Ordered 11/09/2024 90.0 Ambul at ory Pharmac y tamsulosin 0.4 mg capsule See Instruct ions, Oral, # 90 EA, 3 total refill(s ), Hard Stop Oral (given by mouth) Complet ed 11/21/2023 90.0 Ambulat ory Pharmac y Vital Signs Combined list of inpatient and outpatient Vital Signs from [facility] [place] [facility], ranging from 12 months to all on record, depending upon the facility. Vital Sign Value Date Comments Source No data available for this section Ambulatory Pharmacy Encounters Combined list of: 1) Encounters from [facility] Affairs facilities going back up to thelast 18 months. 2) Encounters from the [facility] facilities going back up to 280 months. Location Location Details Encounter Type Encounter Number Reason For Visit Attending Provider ADM Date DC Date Status Disposition Source [facility] Outpatient Encounter [id number] 7 01/02 [facility] Procedures Combined list of: 1) Procedures from [facility] facilities going back up to thelast 18 months, not all [place] non-surgical procedures are included; 2) All procedures from the Department [facility] facilities. Procedure Procedure Type Code Date Perfomer Comments Sourc e No data available for this section Ambulatory P harmacy Social History Combined list of available smoking, tobacco, and other social history from [facility] [place] [facility] facilities. Social History Type Response Date Comment Sourc e This section is an empty social history section. DoD Assessment and Plan Combined list of future care activities from [facility] of Defense and Veterans Affairs facilities (e.g., assessment and plan notes, appointments, orders, and referrals). Additional future care activities may be listed in the Plan of Care section. Result Assessment and Plan Date Source Assessment and Plan No data available for this section 05/08/2024 Ambulatory Pharmacy Functional Status Combined list of recent functional and cognitive assessments recorded at [facility] Functional [place] Measurement (FIM) Scale: 1 = Total Assistance (Subject = 0% +), 2 = Maximal Assistance (Subject = 25% +), 3 = Moderate Assistance (Subject = 50% +), 4 = Minimal Assistance (Subject = 75% +), 5 = Supervision, 6 = Modified Laval[place] (Device), 7 = Complete [place] (Timely, Safely). Assessment Date/Time Source Assessment Type Assessment Skill Assessment Score Assessment Details No data available for this section
--- OUTSIDE RECORDS SUMMARY | 2024-05-08 07:02 | XMS_ITS | Encounter Summary ---
Author Organization [facility] Address [address] [place] [address] [place] [address] Care Team Providers Care Survey Technologist Name Role Phone Laura Ball MD Primary Care Provider [phone] Wale Rodirguez MD Unavailable Unavailable Umang Kerr MD Unavailable Unavailable Gamaliel Dunaway MD Unavailable Unavail able Cole Alvarez MD Unavailable Encounter Details Date Type Department Care Team (Late st Contact Info) Description 10/12/2015 Abstract [facility] [address] [place] [id number] Huy Pearson MD [address] [place] [address] Social History Tobacco Use Types Packs/Day Years Used Date Smoking Tobacco: Smoker, Current Status Unknown Sex and Gender Information Value Date Recorded Sex Assigned at Not on file Legal Sex Male 11:13 PM CDT Gender Identity Not on file Sexual Orientation Not on file documented as of this encounter Plan of Treatment Upcoming Encounters Date Type Department Care Team (Late st Contact Info) Description 12/24/2024 9:30 AM CDT Appointment [facility] [address] [place] [address] Cole Alvarez MD [address] [place] [address] 12/24/2024 10:00 AM CDT Appointment [address] [place] [address] Cole Alvarez MD [address] [place] [address] 12/28/2024 10:45 AM CDT Office Visit [facility] [address] [place] [address] Cole Alvarez MD [address] [place], [place] [address] documented as of this encounter Visit Diagnoses Not on filedocumented in this encounter Care Teams Survey Technologist Relationship Specialty Start Date End Date Laura Ball MD [address] [place] [phone] PCP - General INTERNAL MEDICINE 10/17/15 Wale Rodriguez MD [address] [place] [address] CARDIOVASCULAR DISEASE 10/17/15 07/24/17 Umang Kerr MD [address] [place] [address] Monon Cut File Clerk CARDIOVASCULAR DISEASE 07/25/17 09/24/20 Gamaliel Dunaway MD [address] [place] [address] Consulting Physician INTERVENTIONAL CARDIOLOGY 09/25/20 01/05/23 Cole Alvarez MD [address] [place] [address] Consulting Physician INTERNAL MEDICINE 09/20/21 documented as of this encounter
--- OUTSIDE RECORDS SUMMARY | 2024-05-08 07:03 | XMS_ITS | Encounter Summary ---
Author Organization [facility] Address [address] [facility] [place] [address] [place] [address] Care Team Providers Care Real Estate Inspector Name Role Phone Laura Ball MD Primary Care Provider [phone] Umang Kerr MD Unavailable Unavailable Gamaliel Dunaway MD Unavailable Unavail able Cole Alvarez MD Unavailable Encounter Details Date Type Department Care Team (Late Contact Info) Description 07/02/2018 Abstract [facility] [address] [place] [address] Abstract, Doc [facility] Social History Tobacco Use Types Packs/Day Years Used Date Smoking Tobacco: Former Cigarettes 1.5 40 1 04/30/1973 - 02/28/2014 Smokeless Tobacco: Never Comments:Current Smoker 1- ppd x 40 years Alcohol Use Standard Drinks/Week Comments Yes 0 (1 standard drink = 0.6 oz pur e alcohol) 1 drink per month Sex and Gender Information Value Date Recorded [...] Description 12/24/2024 9:[address] [facility] [address] [place] [address] Cole Alvarez MD [address] [place] [address] 12/24/2024 10:00 AM CDT Appointment [facility] [address] [address] Cole Alvarez MD [address] [place], [place] [address] 12/28/2024 10:45 AM CDT Office Visit [facility] [address] [place] [address] Cole Alvarez MD [address] [place], [place] [address] documented as of this encounter Procedures Procedure Name Priority Date/Time Associated Diagnosis Comments COMPREHENSIVE METABOLIC PANEL Routine 07/01/2018 Coronary artery disease involving choctaw coronary artery of choctaw heart without angina pectoris Bilateral carotid artery disease PVD (peripheral vascular disease) Essential hypertension Mixed hyperlipidemia LIPID PANEL Routine 07/01/2018 Coronary artery disease involving choctaw coronary artery of choctaw heart without angina pectoris Bilateral carotid artery disease PVD (peripheral vascular disease) Essential hypertension Mixed hyperlipidemia CBC W/DIFF AUTOMATED Routine 07/01/2018 PVD (peripheral vascular disease) Essential hypertension documented in this encounter Results * (ABNORMAL) COMPREHENSIVE METABOLIC PANEL (07/01/2018) SODIUM S/P/B 138 POTASSIUM S/P/B 4.8 CO2 29 CHLORIDE S/P/B 100 GLUCOSE 103 mg/dL CALCIUM S/P/B 9.4 BUN 15 CREATININE S/P/B 1.33(A) 0.7 - 1.3 EGFR AFR. AMER. 57 ALKALINE PHOSPHATASE S/P/B 74 ALT 33 AST 20 BILIRUBIN TOTAL S/P/B 0.43 ALBUMIN S/P/B 4.1 3.5 - 5.0 TOTAL PROTEIN S/P/B 7.5 07/01/2018 Umang Kerr MD LABORATORY Final Result * LIPID PANEL (07/01/2018) Pathologist [facility] CHOLESTEROL 130 HDL 60 TRIGLYCERIDES 74 CHOL/HDL RATIO 2.2 LDL (CALCULATED) 55 LDL/HDL 0.9 07/01/2018 Umang Kerr MD LABORATORY Final Result * CBC W/DIFF AUTOMATED (07/01/2018) Pathologist [facility] WBC 6.4 RBC 5.44 HGB 15.7 HCT 46.1 MCV 85 MCH 28.9 MCHC 4.1 RDW 12.7 PLT 169 MPV 8.6 NEUTROPHILS % 63.5 LYMPHOCYTES % 22.6 MONOCYTES % 7.8 EOSINOPHILS % 4.7 BASOPHILS % 1.1 ABS. NEUTROPHILS 4.08 ABS. LYMPHOCYTES 1.45 ABS. MONOCYTES 0.50 ABS. BASOPHILS 0.07 07/01/2018 Result [facility] Trey Griffin MD LABORATORY Final Result documented in this encounter Visit Diagnoses Diagnosis PVD (peripheral vascular disease) (CMS/HCC) Peripheral vascular disease, unspecified Essential hypertension Unspecified essential hypertension Coronary artery disease involving choctaw coronary artery of choctaw heart without angina pectoris Bilateral carotid artery disease (CMS/HCC) Unspecified disorders of arteries and arterioles Mixed hyperlipidemia documented in this encounter Care Teams Real Estate Inspector Relationship Specialty Start Date End Date Laura Ball MD [address] [place] [address] PCP - General INTERNAL MEDICINE 10/17/15 Umang Kerr MD [address] [place] [address] [employer] [employer] Specialist CARDIOVASCULAR DISEASE 07/25/17 09/24/20 Gamaliel Dunaway MD [address] [place] [address] Consulting Physician INTERVENTIONAL CARDIOLOGY 09/25/20 01/05/23 Cole Alvarez MD [address] [place] [address] Consulting Physician INTERNAL MEDICINE 09/20/21 documented as of this encounter
--- OUTSIDE RECORDS SUMMARY | 2024-05-08 07:03 | XMS_ITS | Referral Summary ---
Author Organization [facility] Address [address] [place] [address] Care Team Providers Care Muskrat Trapper Name Role Phone Laura Ball MD Primary Care Provider [phone] [facility],non-owned Affiliates and Associated Physician Practices is amultiple site organization consisting of ambulatory clinics and hospital sitesin [place], [place], [place] and [place]. This disclosure is being madepursuant to the Care Everywhere program and may not contain all information available regarding this patient. Last updated 18.[facility] Reveal Data Allergies Active Allergy Reactions Criticality Noted Date Comments Flu Virus Vaccine 06/07/2014 Medications * Be aware that medications may not be up to date on this document. Alwaysverify current medications with the patient. Medication Sig Dispensed Refills Start Date End Date Status metoprolol succinate XL 24hr (TOPROL XL) 50 MG tablet Take 50 mg by mouth once daily. Active lisinopril (PRINIVIL;ZESTRIL) 5 MG tablet Take 5 mg by mouth once daily. Active mirtazapine (REMERON) 15 MG tablet Take 15 mg by mouth at bedtime. Active meclizine (BONINE) 25 MG chew tablet Take 25 mg by mouth 3 times daily as needed for Nausea/Vomiting. Active Active Problems No known active problems Social History Tobacco Use Types Packs/Day Years Used Date Smoking Tobacco: Former Cigarettes Q uit: 02/28/2014 Smokeless Tobacco: Never Tobacco Cessation:Counseling Given: No Alcohol Use Standard Drinks/Week Comments Yes 0 (1 standard drink = 0.6 oz pur e alcohol) 1-2 weekly Sex and Gender Information Value Date Recorded Sex Assigned at Not on file Gender Identity Not on file Sexual Orientation Not on file Last Filed Vital Signs Vital Sign Reading Time Taken Comments Blood Pressure 129/63 07/06/2014 1:24 PM CDT Pulse 76 07/06/2014 1:24 PM CDT Temperature - - Respiratory Rate - - Oxygen Saturation - - Inhaled Oxygen Concentration - - Weight 73.1 kg (161 lb 4 oz) 07/06/2014 1:24 PM CDT Height 170.2 cm (5' 7 ) 07/06/2014 1:24 PM CDT Body Mass Index 25.26 07/06/2014 1:24 PM CDT Plan of Treatment Not on file Care Teams Muskrat Trapper Relationship Specialty Start Date End Date Laura Ball MD PCP - General Internal Medicine 05/09/14
--- OUTSIDE RECORDS SUMMARY | 2024-05-08 07:03 | XMS_ITS | Clinical Summary ---
Author Organization [facility] Address [address] [facility] [place], [place] [address] [place] [address] Care Team Providers Care Solid Fiber Paster Operator Name Role Phone Laura Ball MD Primary Care Provider [phone] Cole Alvarez MD Unavailable Allergies Active Allergy Reactions Criticality Noted Date Comments Influenza Vaccine Live Syncope 11/06/2018 Influenza Virus Vaccine Rash Low 06/07/2014 Medications amlodipine 10 MG tablet Take 1 tablet (10 mg total) by mouth daily. 08/02/2015 Active pantoprazole EC (PROTONIX) 40 MG tablet Take 1 tablet (40 mg total) by mouth daily. 01/26/2015 Active metoprolol tartrate 25 MG tablet Take by mouth 2 (two) times daily. Active TEGRETOL-XR 100 MG 12 hr tablet As directed 12/27/2016 A ctive atorvastatin 80 MG tablet Take 1 tablet (80 mg total) by mouth nightly at bedtime. 90 tablet 3 01/27/2018 Active meclizine 25 MG tablet Take 1 tablet (25 mg total) by mouth as needed. 12/26/2020 Active vitamin D3, cholecalciferol , 1000 UNIT Tab tablet Take 1 tablet (1,000 Units total) by mouth daily. Active aspirin EC 81 MG tablet Take 1 tablet (81 mg total) by mouth daily. 07/17/2021 Active triamcinolone (KENALOG) 0.1 % cream Apply to skin as directed/as needed 10/08/2021 Active tamsulosin (FLOMAX) 0.4 MG Cap Take 1 capsule (0.4 mg total) by mouth nightly at bedtime. 09/20/2021 Active nitroglycerin (NITROSTAT) 0.[address] 1 tablet (0.4 mg total) under the tongue every 5 (five) minutes as needed for Chest Pain. Do not exceed 3 tablets (call 9-1-1) 25 tablet 3 11/15/2021 Active lisinopril (PRINIVIL) 5 MG tablet TAKE 1 TABLET DAILY 90 tablet 12/24/2021 Active cilostazol (PLETAL) 100 MG tablet Take 1 tablet (100 mg total) by mouth 2 (two) times daily. 180 tablet 2 12/31/2023 Active Active Problems Problem Noted Date Diagnosed Date Chest pain 01/06/2023 Carotid artery disease without cerebral infarcti on 12/31/2016 Myocardial infarct, old 08/15/2016 Seizure disorder ([facility]) 08/15/2016 Pulmonary emphysema ([facility]) 08/15/2016 CAD (coronary artery disease) 11/16/2015 HTN (hypertension) 11/16/2015 Hyperlipidemia 11/16/2015 PAD (peripheral artery disease) 11/16/2015 Embolism involving retinal artery 11/16/2015 S/P insertion of iliac artery stent 11/16/2015 Carotid stenosis, non-symptomatic, bilateral Benign hypertension Resolved Problems Problem Noted Date Diagnosed Date Resolved Date Acute posterior myocardial i nfarction ([facility]) 09/12/2002 09/12/2002 Immunizations Name Administration Dates Next Due Fluzone High Dose - >Age 65 (Prefilled Syringe) 02/21/2023(Deferred: Allergy) [employer] ([employer]) COVID-19 AD26 VACCINE 0.5 ML IM SUSP 12/15/2020 Tdap (Adacel) 12/05/2014 Family History Medical History Relation Comments Stroke Brother 1 Stroke Father Heart Attack Mother Heart Attack Sister 1 Relation Status Comments Brother 1 (Age 53) Brother 2 Brother 3 Brother 4 Father (Age 77) Maternal Grandfather Maternal Grandmother Mother (Age 71) Paternal Grandfather Paternal Grandmother Sister 1 (Age 68) Sister 2 Sister 3 Social History Tobacco Use Types Packs/Day Years Used Date Smoking Tobacco: Former Cigarettes 1.5 40 1 04/30/1973 - 02/28/2014 Smokeless Tobacco: Never Comments:Current Smoker 1- ppd x 40 years Alcohol Use Standard Drinks/Week Comments Never 0 (1 standard drink = 0.6 oz pur e alcohol) Humiliation, Afraid, Rape, and Kick questionnair e Answer Date Recorded Within the last year, have y ou been afraid of your partner or ex-partner? No 01/06/2023 Within the last year, have y ou been humiliated or emotionally abused in other ways by your partner or ex-partner? No Within the last year, have y ou been kicked, hit, slapped, or otherwise physically hurt by your partner or ex-partner? No 01/06/2023 Within the last year, have y ou been raped or forced to have any kind of sexual activity by your partner or ex-partner? No 01/06/2023 Overall Financial Resource Strain (CARDIA) Answe r Date Recorded How hard is it for you to pa y for the very basics like food, housing, medical care, and heating? Not hard at all 01/06/2023 Hunger Vital Sign Answer Date Recorded Within the past 12 months, y ou worried that your food would run out before you got the money to buy more. Never true 01/07/20 23 Within the past 12 months, t he food you bought just didn't last and you didn't have money to get more. Never true 01/06/2023 PRAPARE - Transportation Answer Date Re corded In the past 12 months, has l ack of transportation kept you from medical appointments or from getting medications? No 12/14 In the past 12 months, has l ack of transportation kept you from meetings, work, or from getting things needed for daily living? No 01/06/2023 Housing Stability Vital Sign Answer Ehsan e Recorded In the last 12 months, was t here a time when you were not able to pay the mortgage or rent on time? No 01/06/2023 In the last 12 months, how many places have you lived? 1 01/06/2023 In the last 12 months, was t here a time when you did not have a steady place to sleep or slept in a nursing home (including now)? No 01/06/2023 Sex and Gender Information Value Date Recorded Sex Assigned at Not on file Legal Sex Male 11:13 PM CDT Gender Identity Not on file Sexual Orientation Not on file Occupation Industry Job Start Date Job End Date Retired Not on file Not on file Not on file Last Filed Vital Signs Vital Sign Reading Time Taken Comments Blood Pressure 138/53 12/30/2023 10:27 AM CDT Pulse 61 12/30/2023 10:27 AM CDT Temperature 36.6 ??C (97.9 ??F) 01/08/2023 8:06 AM CD T Respiratory Rate 16 12/30/2023 10:27 AM CDT Oxygen Saturation 96% 06/17/2023 9:15 AM ENROLLMENT SERVICES VICE PRESIDENT Inhaled Oxygen Concentration - - Weight 76.7 kg (169 lb) 12/30/2023 10:27 AM CDT Height 170.2 cm (5' 7 ) 12/30/2023 10:27 AM CDT Body Mass Index 26.47 12/30/2023 10:27 AM CDT Plan of Treatment Upcoming Encounters Date Type Department Care Team (Late st Contact Info) Description 12/24/2024 9:[address] [facility] [place] [address] Cole Alvarez MD [address] [place] [address] 12/24/2024 10:[address] [facility] [place] [address] Cole Alvarez MD [address] [place] [address] 12/28/2024 10:45 AM CDT Office Visit [facility] [address] Cole Alvarez MD [address] [place] [address] Health Maintenance Due Date Last Done Comments ASCVD Statin 1950 Colorectal Cancer Screening Colonoscopy (10 Years) 1950 Pneumococcal Vaccine: 65+ Years (1 of 2 - PCV) 1957 Hepatitis C 1969 Lung Cancer Screening 2001 Zoster Vaccines (1 of 2) 2001 RSV Immunization or 60+ Years (1 - Risk 60-74 years 1-dose series) 2011 Annual Medicare Wellness Visit 2016 COVID-19 Vaccine (2 - season) 2023 12/15/2020 ASCVD LDL 01/08/2024 01/07/2023, 06/0 05/2019, 07/10/2018, Additional history exists Influenza Adult (#1) 2024 DTaP, Tdap and Td Vaccines (2 - Td or Tdap) 12/05/2024 12/05/2014 AAA SCREENING Completed 01/27/2018 Meningococcal B Vaccine Aged Out No l onger eligible based on patient's age to complete this topic Meningococcal Vaccine Aged Out No tiago brittnee eligible based on patient's age to complete this topic RSV Immunizations Under 20 Months Aged Out No longer eligible based on patient's age to complete this topic Goals Goal Patient Goal Type Associated Problems Recent Progress Patient-Stated? Author Patient will return to prior living situation and remain independent in ADLs upon discharge from hospital Lifestyle No Leni Geronimo RN Medical Devices Implanted Type Area Claims Collector Device Identifier Shelf Expiration Date Model / Serial / Lot Everflex Stent Iliac Left Ext-07/06/2018 Implanted:Qty: 1 on 07/06/2018 by Trey Griffin MD Stent Iliac [employer] 11/23/2020 [id number] / / [id number] Vi[employer] Vbx Stent-Iliac Left Com 07/06/2018 Implanted:Qty: 1 on 07/06/2018 by Trey Griffin MD Stent Iliac [employer] 12/11/2020 [id number] / [id number] / Express Ld Stent-Left Com Iliac 07/06/2018 Implanted:Qty: 1 on 07/06/2018 by Trey Griffin MD Stent [employer] 07/10/2019 [id number] / / [id number] Procedures Procedure Name Priority Date/Time Associated Diagnosis Comments LIPID PANEL Routine 01/07/2023 4:45 AM CDT CTA AORTO ILIOFEM RUNOFF Routine 01/27/2018 PVD (peripheral vascular disease) from Last 3 Months or Most Recently Relevant to Health Maintenance Results * LIPID PANEL (01/07/2023 4:45 AM CDT) CHOLESTEROL 106 MG/DL 01/07/2023 5:36 AM CDT [facility] Comment:DESIRABLE: <200 TRIGLYCERIDES 71 MG/DL 01/07/2023 5:36 AM CDT [facility] Comment:<150 NORMAL HDL 49 >39 MG/DL 01/07/2023 5:36 AM CDT [facility] LDL (CALCULATED) 43 MG/DL 01/08/20 5:36 AM CDT [facility] Comment:<100 OPTIMAL VLDL CALCULATION 14 MG/DL 01/08/20 5:36 AM CDT [facility] Comment:REFERENCE RANGE NOT ESTABLISHED CHOL/HDL RATIO 2.2 01/07/2023 5:36 AM CDT [facility] Comment:REFERENCE RANGE NOT ESTABLISHED LDL/HDL 0.9 01/07/2023 5:36 AM CDT [facility] Comment:REFERENCE RANGE NOT ESTABLISHED NON HDL CHOLESTEROL 57 MG/DL 01/07/2023 5:36 AM CDT [facility] Comment:REFERENCE RANGE NOT ESTABLISHED 01/07/2023 4:45 AM CDT us Binh Gilmore MD LABORATORY Final Result [facility] [address] [place] [address], [id number] * CTA AORTO ILIOFEM RUNOFF (01/27/2018) Anatomical Region Laterality Modality Abdomen, Pelvis, Extremity Compu roslyn Tomography us Cole Alvarez MD CT Final Result from Last 3 Months or Most Recently Relevant to Health Maintenance Insurance HUMANA MEDICARE HUMANA Advance Directives * Full Code (Latest Code Status on File) Date Activated Date Inactivated Comments 01/06/2023 4:00 PM 01/08/2023 11:06 AM * Full Code Date Activated Date Inactivated Comments 07/06/2018 5:27 PM 07/06/2018 11:28 PM Care Teams Solid Fiber Paster Operator Relationship Specialty Start Date End Date Laura Ball MD [address] [place] [address] PCP - General INTERNAL MEDICINE 10/17/15 Cole Alvarez MD [address] [place] [address] Consulting Physician INTERNAL MEDICINE 09/20/21
--- OUTSIDE RECORDS SUMMARY | 2024-05-08 07:03 | XMS_ITS | CONTINUITY OF CARE DOCUMENT ---
Author Name mainsh hammond Address Unknown Organization [facility] Office Address [address] [place] [address] [address] [place] [address] Phone [phone] Care Team Providers Care Hide Shaker Name Role Phone John BLANCA, Bhupinder Unavailable
--- OUTSIDE RECORDS SUMMARY | 2024-05-08 07:03 | XMS_ITS | Encounter Summary ---
Author Organization [facility] Address [address] [facility] [place], [place] [address] [place] [address] Care Team Providers Care Linux Server Engineer Name Role Phone Laura Ball MD Primary Care Provider [phone] Cole Alvarez MD Unavailable Encounter Details Date Type Department Care Team (Late st Contact Info) Description 01/09/2023 Hospital Follow-up Call [facility] [address] [place] [address] Haleigh Jaquez, RN Social History Tobacco Use Types Packs/Day Years [...] place to sleep or slept in a group home (including now)? No 01/06/2023 Sex and Gender Information Value Date Recorded Sex Assigned at Not on file Legal Sex Male 11:13 PM CDT Gender Identity Not on file Sexual Orientation Not on file Occupation Industry Job Start Date Job End Date Retired Not on file Not on file Not on file documented as of this encounter Functional Status * Are you deaf or do you have serious difficulty hearing Answer Date of Assessment Author Status No 01/06/2023 3:54 PM CDT Keri Hartmann, R N Active * Are you blind or do you have serious difficulty seeing, even when wearing glasses? Answer Date of Assessment Author Status No 01/06/2023 3:54 PM CDT Keri Hartmann R N Active * Do you have serious difficulty walking or climbing stairs? Answer Date of Assessment Author Status No 01/06/2023 3:54 PM CDT Keri Hartmann RN Active * Do you have difficulty dressing or bathing? Answer Date of Assessment Author Status No 01/06/2023 3:54 PM CDT Keri Hartmann R N Active * Because of a physical, mental, or emotional condition, do you have difficulty doing errands alone such as visiting a doctor's office or shopping? Answer Date of Assessment Author Status No 01/06/2023 3:54 PM CDT Keri Hartmann Q R N Active documented as of this encounter Mental Status * Because of a physical, mental, or emotional condition, do you have serious difficulty concentrating, remembering, or making decisions? Answer Entry Date Author Status No 01/06/2023 3:54 PM CDT Keri Hartmann R N Active documented in this encounter Plan of Treatment Upcoming Encounters Date Type Department Care Team (Late st Contact Info) Description 12/24/2024 9:[address] [facility] [place] [address] Cole Alvarez MD [address] [place] [address] 12/24/2024 10:[address] [facility] [place] [address] Cole Alvarez MD [address] [place] [address] 12/28/2024 10:45 AM CDT Office Visit [facility] [address] [address] Cole Alvarez MD [address] [place] [address] documented as of this encounter Goals Goal Patient Goal Type Associated Problems Recent Progress Patient-Stated? Author Patient will return to prior living situation and remain independent in ADLs upon discharge from hospital Lifestyle No Leni Geronimo RN documented as of this encounter Visit Diagnoses Not on filedocumented in this encounter Care Teams Linux Server Engineer Relationship Specialty Start Date End Date Laura Ball MD [address] [place] [address] PCP - General INTERNAL MEDICINE 10/17/15 Cole Alvarez MD [address] [place], [place] [address] Consulting Physician INTERNAL MEDICINE 09/20/21 documented as of this encounter
--- OUTSIDE RECORDS SUMMARY | 2024-05-08 07:03 | XMS_ITS | Encounter Summary ---
Author Organization [facility] Address [address] [place] [address] [place] [address] Care Team Providers Care Soccer Player Name Role Phone Laura Ball MD Primary Care Provider [phone] Umang Kerr MD Unavailable Unavailable Gamaliel Dunaway MD Unavailable Unavail able Cole Alvarez MD Unavailable Encounter Details Date Type Department Care Team (Late Contact Info) Description 07/10/2018 Abstract [facility] [address] [place] [address] Abstract, Doc [facility] Social History [...] CDT Appointment [facility] [address] [place] [address] Cole Alvarez MD [address] [place] [address] 12/24/2024 10:00 AM CDT Appointment [place] [address] [place] [address] Cole Alvarez MD [address] [place] [address] 12/28/2024 10:45 AM CDT Office Visit [facility] [id number] [place] [id number] Cole Alvarez MD [address] [place], [place] [address] documented as of this encounter Procedures Procedure Name Priority Date/Time Associated Diagnosis Comments BASIC METABOLIC PANEL Routine 07/09/2018 Angina, class II documented in this encounter Results * BASIC METABOLIC PANEL (07/09/2018) SODIUM S/P/B 13 POTASSIUM S/P/B 3.8 CO2 31 CHLORIDE S/P/B 100 GLUCOSE 120 mg/dL CALCIUM S/P/B 9.1 BUN 15 CREATININE S/P/B 1.23 0.7 - 1.3 EGFR NON-AFR. AMER. 62 <=90 07/09/2018 Trey Griffin MD LABORATORY Final Result documented in this encounter Visit Diagnoses Diagnosis Angina, class II (CMS/HCC) Other and unspecified angina pectoris documented in this encounter Care Teams Soccer Player Relationship Specialty Start Date End Date Laura Ball MD [address] [place] [id number] PCP - General INTERNAL MEDICINE 10/17/15 Umang Kerr MD [address] [place] [address] [facility] A[facility] CARDIOVASCULAR DISEASE 07/25/17 09/24/20 Gamaliel Dunaway MD [address] [place] [address] Consulting Physician INTERVENTIONAL CARDIOLOGY 09/25/20 01/05/23 Cole Alvarez MD [address] [place] [address] Consulting Physician INTERNAL MEDICINE 09/20/21 documented as of this encounter
--- OUTSIDE RECORDS SUMMARY | 2024-05-08 07:03 | XMS_ITS | Clinical Summary ---
Author Organization [facility] [employer] Address [address] [place] [address] Care Team Providers Care Linoleum Installer Name Role Phone Laura Ball MD Primary Care Provider [phone] Source Comments [facility],non-owned Affiliates and Associated Physician Practices is amultiple site organization consisting of ambulatory clinics and hospital sitesin [place], [place], [place] and [place]. This disclosure is being madepursuant to the Care Everywhere program and may not contain all information available regarding this patient. Last updated 18.[facility] [employer] [facility] Allergies Active Allergy Reactions Criticality Noted Date [...] 07/06/2014 1:24 PM CDT Plan of Treatment Health Maintenance Due Date Last Done Comments COLOGUARD (AGES 45-75) - COL ON CA SCREENING 1950 COLON MONITORING 1950 COLONOSCOPY - COLON CA SCREENING 1950 CT COLONOGRAPHY - COLON CA SCREENING 1950 Colorectal Cancer Screening 1950 FIT - COLON CA SCREENING 1950 FLEX SIG - COLON CA SCREENING 1950 HEPATITIS C SCREENING 03/05/1969 DTAP/TDAP/TD VACCINES (1 - Tdap) 1970 PNEUMOCOCCAL VACCINE 50+ (1 of 1 - PCV) 2001 ZOSTER VACCINE (1 of 2) 2001 AAA SCREENING 2016 COVID-19 VACCINE ( - 2023-2 5 season) 2023 DEPRESSION SCREENING 04/14/2024 Respiratory Syncytial Virus (RSV) Vaccine Pt: or over 60 yrs (1 - 1-dose 75+ series) 2026 HEPATITIS B VACCINE Aged Out No longe r eligible based on patient's age to complete this topic HIB VACCINE Aged Out No longer eligi ble based on patient's age to complete this topic HPV VACCINE Aged Out No longer eligi ble based on patient's age to complete this topic MENINGOCOCCAL (Group B) VACCINE Aged Out No longer eligible based on patient's age to complete this topic MENINGOCOCCAL VACCINE Aged Out No tiago brittnee eligible based on patient's age to complete this topic Care Teams Linoleum Installer Relationship Specialty Start Date End Date Laura Ball MD PCP - General Internal Medicine 05/09/14
--- OUTSIDE RECORDS SUMMARY | 2024-05-08 07:03 | XMS_ITS | Encounter Summary ---
Author Organization [facility] Address [address] [place] [address] [place] [address] Care Team Providers Care Drilling Engineering Manager Name Role Phone Laura Ball MD Primary Care Provider [phone] Umang Kerr MD Unavailable Unavailable Gamaliel Dunaway MD Unavailable Unavail able Cole Alvarez MD Unavailable Encounter Details Date Type Department Care Team (Late Contact Info) Description 07/13/2018 Abstract [facility] [address] [place] [address] Abstract, Doc [facility] Social History [...] CDT Appointment [facility] [address] [place] [address] Cole Alvarez MD [address] [place] [address] 12/24/2024 10:00 AM CDT Appointment [place] [place] [address] Cole Alvarez MD [address] [place] [address] 12/28/2024 10:45 AM CDT Office Visit [facility] [address] [place] [phone] Cole Alvarez MD [address] [place] [address] documented as of this encounter Procedures Procedure Name Priority Date/Time Associated Diagnosis Comments LIPID PANEL Routine 07/10/2018 documented in this encounter Results * LIPID PANEL (07/10/2018) CHOLESTEROL 124 HDL 53 TRIGLYCERIDES 72 CHOL/HDL RATIO 2.3 LDL (CALCULATED) 57 LDL/HDL 1.1 07/10/2018 us Doc [facility] Abstract LABORATORY Final Result documented in this encounter Visit Diagnoses Not on filedocumented in this encounter Care Teams Drilling Engineering Manager Relationship Specialty Start Date End Date Laura Ball MD [address] [place] [address] PCP - General INTERNAL MEDICINE 10/17/15 Umang Kerr MD [address] [place] [address] [place] [facility] Director CARDIOVASCULAR DISEASE 07/25/17 09/24/20 Gamaliel Dunaway MD [address] [place] [address] Consulting Physician INTERVENTIONAL CARDIOLOGY 09/25/20 01/05/23 Cole Alvarez MD [address] [place] [address] Consulting Physician INTERNAL MEDICINE 09/20/21 documented as of this encounter
--- OUTSIDE RECORDS SUMMARY | 2024-05-08 07:03 | XMS_ITS | Patient Health Summary ---
Author Organization [facility] Address [address] [place] [address] Care Team Providers Care Missile And Missile Checkout Technician Name Role Phone Laura Ball MD Primary Care Provider [phone] [facility],non-owned Affiliates and Associated Physician Practices is amultiple site organization consisting of ambulatory clinics and hospital sitesin [place], [place], [place] and [place]. This disclosure is being madepursuant to the Care Everywhere program and may not contain all information available regarding this patient. Last updated 18.[facility] Allergies * Flu Virus Vaccine Medications * Be aware that medications may not be up to date on this document. Alwaysverify current medications with the patient. * metoprolol succinate XL 24hr (TOPROL XL) 50 MG tablet Take 50 mg by mouth once daily. * lisinopril (PRINIVIL;ZESTRIL) 5 MG tablet Take 5 mg by mouth once daily. * mirtazapine (REMERON) 15 MG tablet Take 15 mg by mouth at bedtime. * meclizine (BONINE) 25 MG chew tablet Take 25 mg by mouth 3 times daily as needed for Nausea/Vomiting. Active Problems No known active problems Social [...] Mass Index 25.26 07/06/2014 1:24 PM CDT Procedures * PT PTT PANEL(Performed 11/22/2008) Performed for Pain in Limb * COMPREHENSIVE METABOLIC PANEL(Performed 11/22/2008) Performed for Pain in Limb Results * PT PTT PANEL (11/22/2008 1:30 PM CDT) [facility] PT 10.1 9.4 - 11.2 seconds [facility] INR 1.0 SEE BELOW [facility] Comment: 0.9-1.1 Normal 2.0-3.0 Conventional 2.5-3.5 Intensive PTT 25.3 24.0 - 32.0 seconds [facility] BLOOD SPECIMEN / Unknown 11/22/2008 1:30 PM CDT 11/22/2008 1:43 PM CDT Deng Baez MD LAB - COAGULATION OR DERABLES [facility] [address] [place] [address] * (ABNORMAL) COMPREHENSIVE METABOLIC PANEL (11/22/2008 1:30 PM CDT) [facility] BUN 24(H) 9.0 - 20.0 mg/dl [facility] Sodium 140 137 - 145 mmol/L [facility] Potassium 4.0 3.6 - 5.0 mmol/L [facility] Chloride 105 98.0 - 107.0 mmol/L [facility] Glucose 104 75 - 110 mg/dl [facility] Creatinine 1.2 0.8 - 1.5 mg/dl [facility] AST 35 17.0 - 59.0 U/L [facility] Alkaline Phosphatase 72 38.0 - 126.0 U/L [facility] Calcium 9.5 8.4 - 10.2 mg/dl [facility] Bilirubin Total <0.1(L) 0.2 - 1.3 mg/dl [facility] Albumin 4.0 3.5 - 5.0 gm/dl [facility] Protein Total 7.1 6.3 - 8.2 gm/dl [facility] CO2 29 22.0 - 30.0 mEq/L [facility] ALT 8(L) 21.0 - 72.0 U/L [facility] eGFR by MDRD 66.3 ml/min/1.7 3m2 [facility] BLOOD SPECIMEN / Unknown 11/22/2008 1:30 PM CDT 11/22/2008 1:43 PM CDT Deng Baez MD LAB - CHEMISTRY [facility] Organization Address City/State/ZIP Co de Phone Number [facility] [address] [place] [address] Care Teams Missile And Missile Checkout Technician Relationship Specialty Start Date End Date Laura Ball MD PCP - General Internal Medicine 05/09/14
[2024-05-08 07:56] LABS: Basophils Absolute Auto 0.05 K/mm3 (0.00-0.10); Basophils Percent Auto 0.8 % (0.0-1.0); Eosinophils Absolute Auto 0.18 K/mm3 (0.02-0.50); Hematocrit 44.2 % (37.0-46.0); Immature Granulocyte Absolute 0.02 K/mm3 (0.00-0.00); Immature Granulocyte Percent A 0.3 % (0.0-0.0); Lymphocytes Absolute Auto 1.61 K/mm3 (1.10-4.50); Mean Corpuscular HGB Conc 33.9 g/dL (32-36); Mean Corpuscular Hemoglobin 29.4 pg (27.0-31.0); Mean Corpuscular Volume 86.7 fL (78.0-102.0); Mean Platelet Volume 8.7 fl (8.7-11.0); Monocytes Absolute Auto 0.45 K/mm3 (0.10-0.90); Monocytes Percent Auto 7.6 % (2.0-11.0); Neutrophils Absolute Auto 3.65 K/mm3 (1.70-7.20); Neutrophils Percent Auto 61.3 % (50.0-70.0); Platelet Count Result 150 K/mm3 (150-420); Red Cell Distribution Width 12.7 % (11.6-14.4)
[2024-05-08 07:57] LABS: Add Urine Microscopic? NO; Appearance Urine Clear (Clear); Bilirubin Urine Negative (Negative); Blood Urine Negative (Negative); Color Urine Light Yellow (Yellow); Glucose Urine UA Negative (Negative); Ketones Urine Negative (Negative); Leukocyte Esterase Ur Negative (Negative); Nitrate Urine Negative (Negative); Protein Urine Negative (Negative); Urobilinogen Urine 0.2 mg/dL (0.2-1.0)
[2024-05-08 08:43] LABS: Alanine Aminotransferase 35 U/L (16-63); Albumin Level 4.3 g/dL (3.4-5.0); Alkaline Phosphatase 74 U/L (46-116); Anion Gap 5 mmol/L (4-12); Aspartate Amino Transferase 21 U/L (15-37); Bilirubin,Total 0.6 mg/dL (0.00-1.00); Blood Urea Nitrogen 26 mg/dL (7-18); Calcium 9.3 mg/dL (8.5-10.1); Carbon Dioxide 31 mmol/L (21-32); Chloride 102 mmol/L (98-108); Cholesterol 123 mg/dL (0-200); Creatine Kinase 71 U/L (39-308); Estimated Glomerular Filt Rate 46; Free T3 2.67 pg/mL (2.18-3.98); Free T4 Free Thyroxine 0.91 ng/dL (0.76-1.46); Glucose 102 mg/dL (70-99); HDL Direct 55 mg/dL (40-60); Hemoglobin A1C 5.7 % (<5.7); LDL Cholesterol Calculated 54 mg/dL (<130); Osmolality Calculated 290 mOsm/kg (285-295); Potassium 4.3 mmol/L (3.5-5.1); Prostate Specific Antigen 1.5 ng/mL (< OR = 4.0); Sodium 138 mmol/L (136-145); Thyroid Stimulating Hormone 0.68 uIU/mL (0.36-3.74); Total Protein 7.3 g/dL (6.4-8.2); Triglycerides 68 mg/dL (0-150)
== END 2024-05-08 06:59 | disposition home or self-care (01) ==
PROVIDERS: PCP Internal Medicine; Visit Provider Internal Medicine
DX: I10 Essential (primary) hypertension (principal); E78.2 Mixed hyperlipidemia; R73.01 Impaired fasting glucose; M15.0 Primary generalized (osteo)arthritis; N18.30 Chronic kidney disease, stage 3 unspecified; E04.1 Nontoxic single thyroid nodule; Z12.5 Encounter for screening for malignant neoplasm of prostate
CPT/HCPCS: 36415; 80053; 80061; 81003; 82550; 83036; 84153; 84439; 84443; 84481; 85025; G0103